=== PATIENT | male | born 1955 | race Caucasian/White ===

== ENCOUNTER 2017-08-06 10:59 | Emergency (ER) | payer BC, OTHER ==
[2017-08-06 11:18] VITALS: PULSE 75; RESP 20
--- NOTE | 2017-08-06 11:39 | ED ---
General Adult HPI - General Chief complaint: Back Pain/Injury Stated complaint: left lower abd pain Time Seen by Provider: 08/06/17 11:20 Source: patient, RN notes reviewed Mode of arrival: ambulatory Limitations: no limitations - History of Present Illness Initial comments: 62-year-old male presents to the emergency department with a chief complaint of left-sided back pain along with other complaints. He states he just had this pain to the left side of the back. Patient states sometimes it'll just flared up and then go away. Patient states sometimes lifting or moving will cause the pain to recur. He states that on Thursday he was having some increased urination be states that has since resolved. Patient states also 2 days ago when he was unloading a truck he did have some chest pain with history of stents in his heart. He states he took a nitro and the pain resolves. Patient states some nausea associated with that episode. Patient denies any chest pain over the last 2 days. Patient states that he also has an umbilical hernia he thought that maybe he should have IS NOT HAVING PAIN OR DISCOMFORT HE HAS NOT NOTICED ANY CHANGES IN SIZE TO THIS AREA EITHER. Patient denies any recent fever, chills , shortness of breath, abdominal pain, vomiting, numbness or tingling, dysuria or hematuria, constipation or diarrhea, headaches or visual changes, or any other current symptoms. - Related Data Home Medications Medication Instructions Recorded Confirmed Multivitamins, Thera [Multivitamin 1 tab PO DAILY 08/06/17 08/06/17 (formulary)] Allergies Allergy/AdvReac Type Severity Reaction Status Date / Time No Known Allergies Allergy Verified 08/06/17 11:35 Review of Systems ROS Statement: Those systems with pertinent positive or pertinent negative responses have been documented in the HPI. ROS Other: All systems not noted in ROS Statement are negative. Past Medical History Past Medical History: Coronary Artery Disease (CAD), Hyperlipidemia, Myocardial Infarction ([place]) History of Any Multi-Drug Resistant Organisms: None Reported Past Surgical History: Heart Catheterization With Stent Past Psychological History: No Psychological Hx Reported Smoking Status: Current every day smoker Past Alcohol Use History: None Reported Past Drug Use History: None Reported General Exam - General Exam Comments Initial Comments: General: The patient is awake and alert, in no distress, and does not appear acutely ill. Eye: Pupils are equal, round and reactive to light, extra-ocular movements are intact; there is normal conjunctiva bilaterally. No signs of icterus. Ears, nose, mouth and throat: There are moist mucous membranes and no oral lesions. Neck: The neck is supple, there is no tenderness. Cardiovascular: There is a regular rate and rhythm. No murmur, rub or gallop is appreciated. Respiratory: Lungs are clear to auscultation, respirations are non-labored, breath sounds are equal. No wheezes, stridor, rales, or rhonchi. Gastrointestinal: reducible Umbilical hernia, Soft, non-distended, non-tender abdomen without masses or organomegaly noted. There is no rebound or guarding present. No CVA tenderness. Bowel sounds are unremarkable. Back: There is no tenderness to palpation in the midline. There is no obvious deformity. No rashes noted. Musculoskeletal: Normal ROM, no tenderness, There is no pedal edema. There is no calf tenderness or swelling. Sensation intact. Pulses equal bilaterally 2+. Neurological: CN II-XII intact, There are no obvious motor or sensory deficits. Coordination appears grossly intact. Speech is normal. Skin: Skin is warm and dry and no rashes or lesions are noted. Psychiatric: Cooperative, appropriate mood & affect, normal judgment. Limitations: no limitations Course Vital Signs 08/06/17 11:15 Temperature 97.8 F Pulse Rate 75 Respiratory 20 Rate Blood Pressure 176/84 O2 Sat by Pulse 96 Oximetry EKG Findings - EKG Comments: EKG Findings:: normal sinus rhythm with occasional premature ventricular complexes 66 bpm, normal axis, no atopy, no S-T depressions or elevations, Medical Decision Making - Medical Decision Making 62-year-old male presents emergency Department with multiple complaints. At this time patient did present with chest pain that was 2 days ago. He does get this from time to time on history he states he normally takes a nitro and it makes the pain go away and this is typical for him. Patient also presented with an umbilical hernia that is reducible. Patient also complains of left flank pain. We thought to be muscle skull to the fact that it's worse with movement and worse with muscle skeletal type exam. At this time we discussed we 'll start her muscle asked for home. We did discuss follow-up return parameters all questions. Patient stated that he understood and he is in agreement with plan. He will be discharged. - Lab Data Result diagrams: 08/06/17 11:50 08/06/17 11:50 Lab Results 08/06/17 08/06/17 08/06/17 Range/Units 11:50 11:50 11:50 WBC 8.9 (3.8-10.6) k/uL RBC 5.12 (4.30-5.90) m/uL Hgb 15.3 (13.0-17.5) gm/dL Hct 46.8 (39.0-53.0) % MCV 91.3 (80.0-100.0) fL MCH 29.9 (25.0-35.0) pg MCHC 32.7 (31.0-37.0) g/dL RDW 13.3 (11.5-15.5) % Plt Count 256 (150-450) k/uL Neutrophils % 62 % Lymphocytes % 25 % Monocytes % 7 % Eosinophils % 3 % Basophils % 1 % Neutrophils # 5.6 (1.3-7.7) k/uL Lymphocytes # 2.2 (1.0-4.8) k/uL Monocytes # 0.6 (0-1.0) k/uL Eosinophils # 0.3 (0-0.7) k/uL Basophils # 0.1 (0-0.2) k/uL PT (9.0-12.0) sec INR (<1.2) APTT (22.0-30.0) sec Sodium 139 (137-145) mmol/L Potassium 4.4 (3.5-5.1) mmol/L Chloride 107 (98-107) mmol/L Carbon Dioxide 23 (22-30) mmol/L Anion Gap 9 mmol/L BUN 19 (9-20) mg/dL Creatinine 1.02 (0.66-1.25) mg/dL Est GFR (MDRD) Af Amer >60 (>60 ml/min/1.73 sqM) Est GFR (MDRD) Non-Af >60 (>60 ml/min/1.73 sqM) Glucose 96 (74-99) mg/dL Calcium 8.9 (8.4-10.2) mg/dL Magnesium 2.2 (1.6-2.3) mg/dL Total Bilirubin 0.6 (0.2-1.3) mg/dL AST 23 (17-59) U/L ALT 34 (21-72) U/L Alkaline Phosphatase 75 (38-126) U/L Total Creatine Kinase 237 H (55-170) U/L CK-MB (CK-2) 1.5 (0.0-2.4) ng/mL CK-MB (CK-2) Rel Index 0.6 Troponin I <0.012 (0.000-0.034) ng/mL Total Protein 7.4 (6.3-8.2) g/dL Albumin 4.1 (3.5-5.0) g/dL Amylase 35 (30-110) U/L Lipase 81 (23-300) U/L Urine Color Urine Appearance (Clear) Urine pH (5.0-8.0) Ur Specific [place] (1.001-1.035) Urine Protein (Negative) Urine Glucose (UA) (Negative) Urine Ketones (Negative) Urine Blood (Negative) Urine Nitrite (Negative) Urine Bilirubin (Negative) Urine Urobilinogen (<2.0) mg/dL Ur Leukocyte Esterase (Negative) 08/06/17 08/06/17 Range/Units 11:50 12:41 WBC (3.8-10.6) k/uL RBC (4.30-5.90) m/uL Hgb (13.0-17.5) gm/dL Hct (39.0-53.0) % MCV (80.0-100.0) fL MCH (25.0-35.0) pg MCHC (31.0-37.0) g/dL RDW (11.5-15.5) % Plt Count (150-450) k/uL Neutrophils % % Lymphocytes % % Monocytes % % Eosinophils % % Basophils % % Neutrophils # (1.3-7.7) k/uL Lymphocytes # (1.0-4.8) k/uL Monocytes # (0-1.0) k/uL Eosinophils # (0-0.7) k/uL Basophils # (0-0.2) k/uL PT 10.5 (9.0-12.0) sec INR 1.0 (<1.2) APTT 23.9 (22.0-30.0) sec Sodium (137-145) mmol/L Potassium (3.5-5.1) mmol/L Chloride (98-107) mmol/L Carbon Dioxide (22-30) mmol/L Anion Gap mmol/L BUN (9-20) mg/dL Creatinine (0.66-1.25) mg/dL Est GFR (MDRD) Af Amer (>60 ml/min/1.73 sqM) Est GFR (MDRD) Non-Af (>60 ml/min/1.73 sqM) Glucose (74-99) mg/dL Calcium (8.4-10.2) mg/dL Magnesium (1.6-2.3) mg/dL Total Bilirubin (0.2-1.3) mg/dL AST (17-59) U/L ALT (21-72) U/L Alkaline Phosphatase (38-126) U/L Total Creatine Kinase (55-170) U/L CK-MB (CK-2) (0.0-2.4) ng/mL CK-MB (CK-2) Rel Index Troponin I (0.000-0.034) ng/mL Total Protein (6.3-8.2) g/dL Albumin (3.5-5.0) g/dL Amylase (30-110) U/L Lipase (23-300) U/L Urine Color Yellow Urine Appearance Clear (Clear) Urine pH 5.0 (5.0-8.0) Ur Specific [place] 1.012 (1.001-1.035) Urine Protein Negative (Negative) Urine Glucose (UA) Negative (Negative) Urine Ketones Negative (Negative) Urine Blood Negative (Negative) Urine Nitrite Negative (Negative) Urine Bilirubin Negative (Negative) Urine Urobilinogen <2.0 (<2.0) mg/dL Ur Leukocyte Esterase Negative (Negative) Disposition Clinical Impression: Lumbar strain, Stable angina, Umbilical hernia Disposition: HOME SELF-CARE Condition: Stable Instructions: Acute Low Back Pain (ED), Lower Back Exercises (ED), Angina (ED) Additional Instructions: Please use medication as discussed. Please follow up with family doctor if symptoms have not improved over the next two days. Please return to the emergency room if your symptoms increase or worsen or for any other concerns. Referrals: Chrissy Salinas DO [REFERRING] - 1-2 days Time of Disposition: 13:08
[2017-08-06 12:00] LABS: Basophils # (A) 0.1 k/uL (0-0.2); Basophils % (A) 1 %; CH 30.4; CHCM 33.5; Eosinophils # (A) 0.3 k/uL (0-0.7); Eosinophils % (A) 3 %; HCT 46.8 % (39.0-53.0); HDW 2.64; HGB 15.3 gm/dL (13.0-17.5); Luc % (Auto) 2; Lymphocytes # (A) 2.2 k/uL (1.0-4.8); Lymphocytes % (A) 25 %; MCH 29.9 pg (25.0-35.0); MCHC 32.7 g/dL (31.0-37.0); MCV 91.3 fL (80.0-100.0); Mean Platelet Volume 6.3; Monocytes # (A) 0.6 k/uL (0-1.0); Monocytes % (A) 7 %; Neutrophils # (A) 5.6 k/uL (1.3-7.7); Neutrophils % (A) 62 %; RBC 5.12 m/uL (4.30-5.90); RDW 13.3 % (11.5-15.5); WBC 8.9 k/uL (3.8-10.6)
[2017-08-06 12:12] LABS: ALT 34 U/L (21-72); AST 23 U/L (17-59); Alkaline Phosphatase 75 U/L (38-126); Amylase 35 U/L (30-110); Anion Gap 9 mmol/L; Blood Urea Nitrogen 19 mg/dL (9-20); Calcium 8.9 mg/dL (8.4-10.2); Carbon Dioxide 23 mmol/L (22-30); Chloride 107 mmol/L (98-107); Glucose 96 mg/dL (74-99); Magnesium 2.2 mg/dL (1.6-2.3); Non-African American GFR(MDRD) >60 (>60 ml/min/1.73 sqM); Potassium 4.4 mmol/L (3.5-5.1); Sodium 139 mmol/L (137-145); Total Bilirubin 0.6 mg/dL (0.2-1.3); Total Protein 7.4 g/dL (6.3-8.2)
[2017-08-06 12:14] LABS: Partial Thromboplastin Time 23.9 sec (22.0-30.0); Prothrombin Time 10.5 sec (9.0-12.0)
--- NOTE | 2017-08-06 12:19 | XR ---
EXAMINATION TYPE: XR chest 2V DATE OF EXAM: 08/06/2017 COMPARISON: 12/23/2011 HISTORY: 62-year-old male with chest pain TECHNIQUE: Frontal and lateral views FINDINGS: Heart is normal size. Aorta and pulmonary vasculature within normal limits. Mild interstitial promine nce similar to prior. There is hyperinflation with flattening of the hemidiaphragms. No consolidation or pleural effusion. IMPRESSION: COPD. No acute process seen.
--- NOTE | 2017-08-06 12:23 | XR ---
EXAMINATION TYPE: XR lumbar spine 2 or 3V DATE OF EXAM: 08/06/2017 COMPARISON: None HISTORY: 62-year-old male with pain TECHNIQUE: 3 views FINDINGS: There is leftward truncal shift. Facet arthropathy mid to lower lumbar spine with multilevel mild end plate spondylosis. Vertebral body heights are reserved. Grade 1 retrolisthesis at L1-L2. IMPRESSION: 1. Mild multilevel degenerative disc disease and endplate spondylosis. 2. Facet arthropathy mid to lower lumbar spine. 3. Grade 1 retrolisthesis at L1-L2. No vertebral compression collapse. 4. Leftward truncal shift could be positional or due to muscle spasm.
[2017-08-06 12:32] LABS: Creatine Kinase 237 U/L (55-170)
[2017-08-06 12:44] LABS: Creatine Kinase MB 1.5 ng/mL (0.0-2.4); Troponin I <0.012 ng/mL (0.000-0.034)
[2017-08-06 12:57] LABS: Appearance,Urine Clear (Clear); Bilirubin,Urine Negative (Negative); Glucose,Urine (UA) Negative (Negative); Ketones,Urine Negative (Negative); Leukocyte Esterase,Urine Negative (Negative); Nitrite,Urine Negative (Negative); Protein,Urine Negative (Negative); Specific Gravity,Urine 1.012 (1.001-1.035); UA Billing (MACRO vs. MICRO) CHEM; Urobilinogen,Urine <2.0 mg/dL (<2.0)
[2017-08-06] MEDS ORDERED: KETOROLAC 30 MG/ML 1 ML VIAL IVP STA (12:58)
[2017-08-06] MEDS ORDERED: ORPHENADRINE 30 MG/ML 2 ML VIAL IVP STA (12:58)
[2017-08-06 13:18] VITALS: BP 134/78; TEMP 97
== END 2017-08-06 13:20 | disposition home or self-care (01) ==
LOC: EC 10:59
DX: S39.012A Strain of muscle, fascia and tendon of lower back, initial encounter (principal); K42.9 Umbilical hernia without obstruction or gangrene; I20.8 Other forms of angina pectoris; F17.200 Nicotine dependence, unspecified, uncomplicated; E78.5 Hyperlipidemia, unspecified; I25.2 Old myocardial infarction; Z79.899 Other long term (current) drug therapy; X50.0XXA Overexertion from strenuous movement or load, initial encounter
CPT/HCPCS: 36415; 71020; 72100; 80053; 81003; 82150; 82550; 82553; 83690; 83735; 84484; 85025; 85610; 85730; 93005; 99284

== ENCOUNTER 2018-03-06 11:46 | Emergency (ER) | payer OTHER ==
[2018-03-06 12:10] VITALS: BP 186/74; PULSE 76; RESP 18; TEMP 98.1
--- NOTE | 2018-03-06 12:20 | ED ---
Lower Extremity Injury HPI - General Chief Complaint: Extremity Injury, Lower Stated Complaint: right leg pain Time Seen by Provider: 03/06/18 12:11 Source: patient, RN notes reviewed, old records reviewed Mode of arrival: ambulatory Limitations: no limitations - History of Present Illness Initial Comments: this Patient is a 63-year-old male chief complaint of right lower extremity and calf pain for the past 3 weeks. Patient reports that when he goes for long periods time the pain gets significantly worse. He does work [employer] business. He does try to keep active. Patient reports that he occasionally has pain within the bone, but it seems to be more within the muscles in the back of the calf. Patient states that he has full range of motion. Occasionally reports the pain radiating towards his great toe. He states that he is able to ambulate. Denies any peripheral paresthesias. Patient denies any recent fever, chills, shortness of breath, chest pain, back pain, abdominal pain, nausea vomiting, numbness or tingling, dysuria or hematuria, constipation or diarrhea, headaches or visual changes, or any other current symptoms - Related Data Previous Rx's Medication Instructions Recorded Cyclobenzaprine [Flexeril] 10 mg PO TID #10 tab 03/06/18 Ibuprofen [Motrin] 800 mg PO TID #20 tab 03/06/18 Allergies Allergy/AdvReac Type Severity Reaction Status Date / Time No Known Allergies Allergy Verified 03/06/18 12:10 Review of Systems ROS Statement: Those systems with pertinent positive or pertinent negative responses have been documented in the HPI. ROS Other: All systems not noted in ROS Statement are negative. Past Medical History Past Medical History: Coronary Artery Disease (CAD), Hyperlipidemia, Myocardial Infarction ([place]) History of Any Multi-Drug Resistant Organisms: None Reported Past Surgical History: Heart Catheterization With Stent Past Psychological History: No Psychological Hx Reported Smoking Status: Current every day smoker Past Alcohol Use History: None Reported Past Drug Use History: None Reported General Exam - General Exam Comments Initial Comments: well-appearing 63-year-old male. Patient is hypertensive 180/90. Informed of these results. Discussed he will follow up with primary care provider regards to this. He appears in no acute distress. Denies anxiety. Limitations: no limitations General appearance: alert, in no apparent distress Head exam: Present: atraumatic, normocephalic, normal inspection Eye exam: Present: normal appearance, PERRL, EOMI. Absent: scleral icterus, conjunctival injection, periorbital swelling ENT exam: Present: normal exam, mucous membranes moist Neck exam: Present: normal inspection. Absent: tenderness, meningismus, lymphadenopathy Respiratory exam: Present: normal lung sounds bilaterally. Absent: respiratory distress, wheezes, rales, rhonchi, stridor Cardiovascular Exam: Present: regular rate GI/Abdominal exam: Present: soft, normal bowel sounds. Absent: distended, tenderness, guarding, rebound, rigid Extremities exam: Present: normal inspection, full ROM, normal capillary refill. Absent: tenderness, pedal edema, joint swelling, calf tenderness Right Knee exam: Present: normal inspection, full ROM Lower Leg exam: Present: normal inspection, full ROM, tenderness (Patient has tenderness over the posterior calf. No significant swelling). Absent: swelling , abrasion Ankle exam: Present: normal inspection, full ROM Foot/Toe exam: Present: normal inspection, full ROM Neurovascular tendon exam: Present: no vascular compromise Back exam: Present: normal inspection Neurological exam: Present: alert, oriented X3, CN II-XII intact Psychiatric exam: Present: normal affect, normal mood Skin exam: Present: warm, dry, intact, normal color. Absent: rash Course Vital Signs 03/06/18 12:05 Temperature 98.1 F Pulse Rate 76 Respiratory 18 Rate Blood Pressure 186/74 O2 Sat by Pulse 95 Oximetry Medical Decision Making - Medical Decision Making this Patient is a 63-year-old male presents emergency Department chief complaint of right calf pain for the past 2 weeks. Worse with ablation. Ultrasound and x-ray obtained.ultrasound was negative for DVT. X-ray of the tib -fib shows no acute abnormalities. patient's informed of these results. Discussed likely a significant muscle strain. Discussed that the Patient anti- inflammatory medicine and he can Pj wrap the back of the leg. Discussed falling up with orthopedic or primary care doctor. Questions answered return parameters were discussed. - Radiology Data Radiology results: report reviewed tib-fib x-ray was reviewed and negative for any acute process. Ultrasound of the right leg shows no evidence of DVT. Disposition Clinical Impression: Right calf pain, Hypertension Disposition: HOME SELF-CARE Condition: Good Instructions: Muscle Cramp (ED) Additional Instructions: Patient was up with primary care provider. Return to emergency department if any alarming signs or symptoms occur. Prescriptions: Cyclobenzaprine [Flexeril] 10 mg PO TID #10 tab Ibuprofen [Motrin] 800 mg PO TID #20 tab Is patient prescribed a controlled substance at d/c from ED?: No When asked, does pt state using other controlled substances?: No If prescribed controlled substance>3 days was MAPS reviewed?: No If opioid is for acute pain is fill amount 7 days or less?: No If Rx opioid, was Start Talking consent form obtained?: No Referrals: None,Stated [Primary Care Provider] - 1-2 days Leeanna Guevara MD [REFERRING] - 1-2 days Time of Disposition: 14:01
--- NOTE | 2018-03-06 13:46 | US ---
EXAMINATION TYPE: US venous doppler duplex LE RT DATE OF EXAM: 03/06/2018 1:36 PM COMPARISON: NONE CLINICAL HISTORY: Pain. SIDE PERFORMED: Right TECHNIQUE: The lower extremity deep venous system is examined utilizing real time linear array sonog royal with graded compression, doppler sonography and color-flow sonography. VESSELS IMAGED: External Iliac Vein (EIV) Common Femoral Vein Deep Femoral Vein Greater Saphenous Vein * Femoral Vein Popliteal Vein Small Saphenous Vein * Proximal Calf Veins (* superficial vessels) Grayscale, color doppler, spectral doppler imaging performed of the deep veins of the right lower ext remity. There is normal flow, compressibility, vascular waveforms. Right Leg: Negative for DVT IMPRESSION: Sonographic evidence of acute deep venous thrombosis within the right lower extremity.
--- NOTE | 2018-03-06 13:53 | XR ---
EXAMINATION TYPE: XR tibia fibula RT DATE OF EXAM: 03/06/2018 COMPARISON: NONE HISTORY: Pain TECHNIQUE: Two views are submitted. FINDINGS: The osseous structures are intact. The joint spaces are preserved. IMPRESSION: 1. No acute osseous abnormality.
== END 2018-03-06 14:30 | disposition home or self-care (01) ==
LOC: EC 11:46
DX: M79.661 Pain in right lower leg (principal); I10 Essential (primary) hypertension; I25.2 Old myocardial infarction; F17.200 Nicotine dependence, unspecified, uncomplicated; Z95.5 Presence of coronary angioplasty implant and graft
CPT/HCPCS: 99284

== ENCOUNTER 2018-09-30 09:56 | Inpatient (IN) | payer OTHER ==
[2018-09-30] MEDS ORDERED: NITROGLYCERIN OINT 1 INCH/GM PACKET TOPICAL STA (10:10)
[2018-09-30] MEDS ORDERED: ASPIRIN 81 MG PO STA (10:10)
[2018-09-30] MEDS ORDERED: NITROGLYCERIN SL TABS 0.4 MG TAB SUBLINGUAL STA (10:10)
--- NOTE | 2018-09-30 10:17 | ED ---
General Adult HPI - General Chief complaint: Chest Pain Stated complaint: Chest pain Time Seen by Provider: 09/30/18 10:00 Source: patient, RN notes reviewed Mode of arrival: ambulatory - History of Present Illness Initial comments: This is a 63-year-old male who presents emergency Department complaining of intermittent chest pain over the last 2 weeks. Patient states he didn't want to come in because he wanted to wait for the holidays were over. Patient states a friend gave him a bottle of nitroglycerin he took about all the pills. Patient states every time he took a pill the chest pain dissipated. Patient denies any shortness of breath with the pain. Patient denies any nausea or diaphoresis with the pain. Patient states the pain does radiate to his left arm when it occurs. Patient denies any recent fever chills or cough. Patient states he smokes and does have a positive family history of heart disease per patient denies any abdominal pain patient denies nausea vomiting diarrhea. Patient denies any lightheadedness dizziness or near-syncopal episode. Patient states currently is not having any calf pain but he notices that when he walks often he is getting calf pain bilaterally. - Related Data Home Medications Medication Instructions Recorded Confirmed No Known Home Medications 09/30/18 09/30/18 Allergies Allergy/AdvReac Type Severity Reaction Status Date / Time No Known Allergies Allergy Verified 09/30/18 11:06 Review of Systems ROS Statement: Those systems with pertinent positive or pertinent negative responses have been documented in the HPI. ROS Other: All systems not noted in ROS Statement are negative. Past Medical History Past Medical History: Coronary Artery Disease (CAD), Hyperlipidemia, Myocardial Infarction ([place]) History of Any Multi-Drug Resistant Organisms: None Reported Past Surgical History: Heart Catheterization With Stent Past Psychological History: No Psychological Hx Reported Smoking Status: Current every day smoker Past Alcohol Use History: None Reported Past Drug Use History: None Reported General Exam - General Exam Comments Initial Comments: GENERAL: Patient is well-developed and well-nourished. Patient is nontoxic and well- hydrated and is in mild distress. ENT: Neck is soft and supple. No significant lymphadenopathy is noted. Oropharynx is clear. Moist mucous membranes. Neck has full range of motion without eliciting any pain. EYES: The sclera were anicteric and conjunctiva were pink and moist. Extraocular movements were intact and pupils were equal round and reactive to light. Eyelids were unremarkable. PULMONARY: Unlabored respirations. Good breath sounds bilaterally. No audible rales rhonchi or wheezing was noted. CARDIOVASCULAR: There is a regular rate and rhythm without any murmurs gallops or rubs. ABDOMEN: Soft and nontender with normal bowel sounds. No palpable organomegaly was noted. There is no palpable pulsatile mass. SKIN: Skin is clear with no lesions or rashes and otherwise unremarkable. NEUROLOGIC: Patient is alert and oriented x3. Cranial nerves II through XII are grossly intact. Motor and sensory are also intact. Normal speech, volume and content. Symmetrical smile. MUSCULOSKELETAL: Normal extremities with adequate strength and full range of motion. No lower extremity swelling or edema. No calf tenderness. LYMPHATICS: No significant lymphadenopathy is noted PSYCHIATRIC: Normal psychiatric evaluation. Course Vital Signs 09/30/18 09/30/18 09/30/18 09:58 10:30 11:03 Temperature 97.9 F Pulse Rate 96 79 80 Respiratory 25 H 20 20 Rate Blood Pressure 169/99 96/75 122/79 O2 Sat by Pulse 95 96 92 L Oximetry Medical Decision Making - Medical Decision Making EKG shows sinus rhythm with occasional PVC at 87 bpm ND interval is 136 QRS is 110 QT interval 360 QTC is 442. Patient's EKG shows some Q waves in inferior leads as well as flipped T waves in leads 3 and aVF. When compared to an old EKG patient had Q waves in the past however the flipped T waves appear to be new. There is no ST segment elevation noted. Patient does have a little bit of ST segment depression in leads V4 through V6. After patient was in the emergency department over an hour and half he told nursing that he did have stents placed in his heart even though he told me he had no heart history. I started the patient heparin because of his unstable angina. I spoke with Dr. Martinez I admitted the patient I wrote admitting orders I consult cardiology. I continue aspirin heparin Nitropaste on the floor. - Lab Data Result diagrams: 09/30/18 10:18 09/30/18 10:18 Lab Results 09/30/18 09/30/18 09/30/18 Range/Units 10:18 10:18 10:18 WBC 10.1 (3.8-10.6) k/uL RBC 5.57 (4.30-5.90) m/uL Hgb 15.8 (13.0-17.5) gm/dL Hct 49.7 (39.0-53.0) % MCV 89.2 (80.0-100.0) fL MCH 28.4 (25.0-35.0) pg MCHC 31.8 (31.0-37.0) g/dL RDW 14.0 (11.5-15.5) % Plt Count 312 (150-450) k/uL Neutrophils % 70 % Lymphocytes % 19 % Monocytes % 6 % Eosinophils % 3 % Basophils % 1 % Neutrophils # 7.1 (1.3-7.7) k/uL Lymphocytes # 2.0 (1.0-4.8) k/uL Monocytes # 0.6 (0-1.0) k/uL Eosinophils # 0.3 (0-0.7) k/uL Basophils # 0.1 (0-0.2) k/uL PT (9.0-12.0) sec INR (<1.2) APTT (22.0-30.0) sec Sodium 138 (137-145) mmol/L Potassium 4.8 (3.5-5.1) mmol/L Chloride 107 (98-107) mmol/L Carbon Dioxide 22 (22-30) mmol/L Anion Gap 9 mmol/L BUN 21 H (9-20) mg/dL Creatinine 1.09 (0.66-1.25) mg/dL Est GFR (CKD-EPI)AfAm 84 (>60 ml/min/1.73 sqM) Est GFR (CKD-EPI)NonAf 73 (>60 ml/min/1.73 sqM) Glucose 107 H (74-99) mg/dL Calcium 9.4 (8.4-10.2) mg/dL Magnesium 2.2 (1.6-2.3) mg/dL Total Bilirubin 0.8 (0.2-1.3) mg/dL AST 20 (17-59) U/L ALT 25 (21-72) U/L Alkaline Phosphatase 73 (38-126) U/L Total Creatine Kinase 92 (55-170) U/L CK-MB (CK-2) 0.6 (0.0-2.4) ng/mL CK-MB (CK-2) Rel Index 0.7 Troponin I 0.036 H* (0.000-0.034) ng/mL Total Protein 7.7 (6.3-8.2) g/dL Albumin 4.4 (3.5-5.0) g/dL 09/30/18 Range/Units 10:18 WBC (3.8-10.6) k/uL RBC (4.30-5.90) m/uL Hgb (13.0-17.5) gm/dL Hct (39.0-53.0) % MCV (80.0-100.0) fL MCH (25.0-35.0) pg MCHC (31.0-37.0) g/dL RDW (11.5-15.5) % Plt Count (150-450) k/uL Neutrophils % % Lymphocytes % % Monocytes % % Eosinophils % % Basophils % % Neutrophils # (1.3-7.7) k/uL Lymphocytes # (1.0-4.8) k/uL Monocytes # (0-1.0) k/uL Eosinophils # (0-0.7) k/uL Basophils # (0-0.2) k/uL PT 9.9 (9.0-12.0) sec INR 0.9 (<1.2) APTT 24.3 (22.0-30.0) sec Sodium (137-145) mmol/L Potassium (3.5-5.1) mmol/L Chloride (98-107) mmol/L Carbon Dioxide (22-30) mmol/L Anion Gap mmol/L BUN (9-20) mg/dL Creatinine (0.66-1.25) mg/dL Est GFR (CKD-EPI)AfAm (>60 ml/min/1.73 sqM) Est GFR (CKD-EPI)NonAf (>60 ml/min/1.73 sqM) Glucose (74-99) mg/dL Calcium (8.4-10.2) mg/dL Magnesium (1.6-2.3) mg/dL Total Bilirubin (0.2-1.3) mg/dL AST (17-59) U/L ALT (21-72) U/L Alkaline Phosphatase (38-126) U/L Total Creatine Kinase (55-170) U/L CK-MB (CK-2) (0.0-2.4) ng/mL CK-MB (CK-2) Rel Index Troponin I (0.000-0.034) ng/mL Total Protein (6.3-8.2) g/dL Albumin (3.5-5.0) g/dL Critical Care Time Critical Care Time: Yes Total Critical Care Time: 35 Disposition Clinical Impression: Unstable angina pectoris Disposition: ADMITTED IP TO THIS HOSP Referrals: None,Stated [Primary Care Provider] - 1-2 days Time of Disposition: 11:08
[2018-09-30 10:40] LABS: INR 0.9 (<1.2); Partial Thromboplastin Time 24.3 sec (22.0-30.0); Prothrombin Time 9.9 sec (9.0-12.0)
[2018-09-30 10:41] LABS: Basophils # (A) 0.1 k/uL (0-0.2); Basophils % (A) 1 %; Eosinophils # (A) 0.3 k/uL (0-0.7); Eosinophils % (A) 3 %; HCT 49.7 % (39.0-53.0); HGB 15.8 gm/dL (13.0-17.5); Lymphocytes % (A) 19 %; MCH 28.4 pg (25.0-35.0); MCHC 31.8 g/dL (31.0-37.0); MCV 89.2 fL (80.0-100.0); Mean Platelet Volume 6.3; Monocytes # (A) 0.6 k/uL (0-1.0); Monocytes % (A) 6 %; Neutrophils # (A) 7.1 k/uL (1.3-7.7); Neutrophils % (A) 70 %; Platelet Count 312 k/uL (150-450); RBC 5.57 m/uL (4.30-5.90); WBC 10.1 k/uL (3.8-10.6)
--- NOTE | 2018-09-30 10:44 | XR ---
EXAMINATION TYPE: XR chest 2V DATE OF EXAM: 09/30/2018 COMPARISON: 08/06/2017 TECHNIQUE: PA and lateral views submitted. HISTORY: Chest pain FINDINGS: The lungs are clear and there is no pneumothorax, pleural effusion, or focal pneumonia. Hyperinflat ion suggests COPD and there is biapical pleural thickening. Hypertrophic and degenerative changes of the spine. IMPRESSION: 1. Correlate for COPD.
[2018-09-30 10:53] LABS: Albumin 4.4 g/dL (3.5-5.0); Calcium 9.4 mg/dL (8.4-10.2); Magnesium 2.2 mg/dL (1.6-2.3); Potassium 4.8 mmol/L (3.5-5.1); Total Bilirubin 0.8 mg/dL (0.2-1.3); Total Protein 7.7 g/dL (6.3-8.2)
[2018-09-30 11:06] LABS: Creatine Kinase MB 0.6 ng/mL (0.0-2.4)
[2018-09-30] MEDS ORDERED: HEPARIN SODIUM,PORCINE 5,000 UNIT/ML 1 ML VIAL IV ONE (11:06)
[2018-09-30 11:10] LABS: Troponin I 0.036 ng/mL (0.000-0.034)
[2018-09-30] MEDS ORDERED: NITROGLYCERIN SL TABS 0.4 MG TAB SUBLINGUAL PRN (11:12)
[2018-09-30] MEDS: HEPARIN SOD,PORK IN 0.45% NACL 25,000 UNIT in 0.45% NACL 1 250ML.BAG IV SCH (12:00)
--- NOTE | 2018-09-30 13:27 | P.HPIM ---
History of Present Illness Chief Complaint: Chest pain This is a 63-year-old male who is presenting in the emergency department due to chest pain. Past medical history significant for coronary artery disease with multiple percutaneous interventions in the past. Currently patient does not take much of his usual recommended medications and due to insurance issues does not have regular follow-ups with cardiology. Patient states that for about last 2-3 weeks he's been having intermittent retrosternal chest pressure like discomfort mild to moderate severity provoked initially by exertion and stress and exposure to cold weather lasting few minutes and then subsiding on its own. Over the last 1 week he noticed episodes are coming 3-4 times a day sometimes even at rest. He also borrowed some nitroglycerin from his cousins and notices that episodes of chest pain would resolve promptly with nitroglycerin. He denies any shortness of breath, nausea, vomiting, diaphoresis, orthopnea or leg swelling due to worsening episodes of this pain increases in severity he decided to come to emergency Department. Emergency department his EKG showed normal sinus rhythm some Q waves in inferior leads and no any acute ST segment changes. Chest x-ray was stable without acute findings and first troponin was elevated at 0.036. Patient was given aspirin and started on heparin infusion. Patient states that he had first heart attack in 1996 at which time he was treated by from cardiology and had stents placed. He was doing very well after that attend about 6 years later he had another heart attack again treated with stents insertions. About 6 years ago with the last time when he had a heart attack and that time was also treated with percutaneous intervention. 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 Otherwise he does report some cramping and stiffening in his coughs mostly in the left side with ambulation but not severe to interrupt his usual activities. Review of Systems Constitutional: Patient reports no fever, no chills, no weight changes, no change in appetite Eyes: Patient reports no double vision, no visual changes ENT: Patient reports no rhinorrhea, no post nasal drip, no sore throat Cardiovascular: As per HPI Respiratory: Patient reports no dyspnea, no cough, no wheeze Gastrointestinal: Patient reports no nausea, no vomiting, no constipation, no diarrhea Genitourinary: Patient reports no dysuria, no urinary frequency, no hematuria. Musculoskeletal: Patient reports no unusual joint pain, no joint swelling or weakness. Patient reports no muscular pain. Psychiatric: Patient reports no changes in mood, no sleeping problems. Patient reports no changes in memory. Endocrine: Patient reports no thirst, no polyuria, no cold intolerance, no heat intolerance. Neurological: Patient reports no unusual paresthesias, no seizures, no paresis , no paralysis, no facila droop, no headache. Heme/Lymphatic: Patient reports no easy bruising, no bleeding tendency, no lymphadenopathy. Allergic/ Immunologic: Patient reports no recent allergic reactions or immunologic history. Skin: Patient reports no rashes or unusual lesions. Past Medical History Past Medical History: Coronary Artery Disease (CAD), Hyperlipidemia, Myocardial Infarction ([place]) History of Any Multi-Drug Resistant Organisms: None Reported Past Surgical History: Heart Catheterization With Stent Past Psychological History: No Psychological Hx Reported Smoking Status: Current every day smoker Past Alcohol Use History: None Reported Past Drug Use History: None Reported - Past Family History Father Family Medical History: Coronary Artery Disease (CAD) Additional Family Medical History / Comment(s): father is . hx cabg Mother Family Medical History: Cancer Additional Family Medical History / Comment(s): . hx leukemia Medications and Allergies Home Medications Medication Instructions Recorded Confirmed Type No Known Home Medications 09/30/18 09/30/18 History Allergies Allergy/AdvReac Type Severity Reaction Status Date / Time No Known Allergies Allergy Verified 09/30/18 11:06 Physical Exam Vitals: Vital Signs Temp Pulse Resp BP Pulse Ox 09/30/18 11:56 76 18 103/69 96 09/30/18 11:03 80 20 122/79 92 L 09/30/18 10:30 79 20 96/75 96 09/30/18 09:58 97.9 F 96 25 H 169/99 95 Intake and Output 09/29/18 09/30/18 09/30/18 22:59 06:59 14:59 Other: Weight 121.653 kg Vital Signs: I have reviewed the vital signs. GENERAL: no apparent distress, cooperative Eyes: PERRL, extraoculry movements intact, clear conjunctiva Head: : Atraumatic external nose and ears, oropharyngeal mucosa is moist without lesions or exudates Neck: Symmetric, trachea midline, No thyromegaly, no masses or neck vain pulsation, no neck rigidity CVS: +S1/S2, No murmurs or gallops. Dorsalis pedis pulses are weak but they were identified using Doppler emergency department. His both feet are very well perfused and warm with brisk capillary refill and no skin change RESP: Unlabored respiratory effort. Clear to auscultation bilaterally. Abdomen: He does have midline infraumbilical ventral hernia that soft and without any particular continent but palpable . Bowel sounds present in all 4 quadrants, Soft to palpation, Nontender/Nondistended, No hepatosplenomegaly, no CVA tnderness Musculoskeletal: Extremities w/o deformity, No cyanosis or clubbing, no joint swelling Skin: Warm, Dry. 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 Non-STEMI Trend troponin Cardiology consultation Continue heparin and antiplatelets Beta blockers Statin Nitroglycerin when necessary chest pains 2. Hyperlipidemia Statin 3. Tobacco addiction Smoking cessation 4. Consult community mental health social worker for insurance Patient is a full code expected length of stay 2 or more midnights
[2018-09-30 17:57] LABS: Creatine Kinase MB 0.7 ng/mL (0.0-2.4)
[2018-09-30 18:15] LABS: Troponin I 0.038 ng/mL (0.000-0.034)
[2018-09-30] MEDS: ATORVASTATIN 40 MG TAB PO SCH (19:49)
[2018-09-30 22:47] LABS: Creatine Kinase MB 0.6 ng/mL (0.0-2.4)
[2018-09-30 22:53] LABS: Troponin I 0.047 ng/mL (0.000-0.034)
[2018-10-01 04:54] LABS: Hemoglobin A1C 6.3 % (4.0-6.0)
[2018-10-01 05:15] LABS: ALT 26 U/L (21-72); AST 19 U/L (17-59); Albumin 3.6 g/dL (3.5-5.0); Alkaline Phosphatase 71 U/L (38-126); Anion Gap 4 mmol/L; Blood Urea Nitrogen 20 mg/dL (9-20); Calcium 8.8 mg/dL (8.4-10.2); Carbon Dioxide 25 mmol/L (22-30); Chloride 110 mmol/L (98-107); Cholesterol 211 mg/dL (<200); Glucose 110 mg/dL (74-99); HDL Cholesterol 31 mg/dL (40-60); LDL Cholesterol,Calculated 143 mg/dL (0-99); Potassium 4.4 mmol/L (3.5-5.1); Sodium 139 mmol/L (137-145); Total Bilirubin 0.7 mg/dL (0.2-1.3); Total Protein 6.6 g/dL (6.3-8.2); Triglycerides 186 mg/dL (<150)
[2018-10-01] MEDS ORDERED: HEPARIN SODIUM,PORCINE 5,000 UNIT/ML 1 ML VIAL IV PRN (05:41)
[2018-10-01] MEDS: METOPROLOL TARTRATE 12.5 MG TAB PO SCH ×2 (09:25→19:58)
[2018-10-01] MEDS: ASPIRIN 325 MG TAB PO SCH (09:26)
--- NOTE | 2018-10-01 11:11 | ECHOF ---
Referral Reason:Chest pain non-STEMI MEASUREMENTS -------- HEIGHT: 172.7 cm WEIGHT: 121.6 kg BP: 103/69 RVIDd: 3.3 cm (< 3.3) IVSd: 1.0 cm (0.6 - 1.1) LVIDd: 4.5 cm (3.9 - 5.3) LVPWd: 1.4 cm (0.6 - 1.1) IVSs: 1.0 cm LVIDs: 3.5 cm LVPWs: 1.4 cm LAESV Index (A-L): 16.13 ml/m Ao Diam: 3.1 cm (2.0 - 3.7) AV Cusp: 2.2 cm (1.5 - 2.6) LA Diam: 2.6 cm (2.7 - 3.8) MV EXCURSION: 13.601 mm (> 18.000) MV EF SLOPE: 59 mm/s (70 - 150) EPSS: 1.6 cm MV E Dejuan: 0.57 m/s MV DecT: 238 ms MV A Dejuan: 0.75 m/s MV E/A Ratio: 0.76 RAP: 5.00 mmHg RVSP: 10.63 mmHg FINDINGS -------- Sinus rhythm. This was a technically difficult study with suboptimal views. The left ventricular size is normal. There is mild concentric left ventricular hypertrophy. Overa ll left ventricular systolic function is mild-moderately impaired with, an EF between 40 - 45 %. Ba roseline inferior LV wall motion is hypokinetic. Basal inferoseptal LV wall motion is hypokinetic. M id inferior LV wall motion is hypokinetic. Mid inferoseptal LV wall motion is hypokinetic. The right ventricle is mildly enlarged. Normal LA size by volume 22+/-6 ml/m2. The right atrium is normal in size. The aortic valve was not well visualized. There is trace mitral regurgitation. Trace tricuspid regurgitation present. The right ventricular systolic pressure, as measured by Dopp ler, is 10.63mmHg. Pulmonic valve appears structurally normal. The aortic root size is normal. IVC Not well visulized. The pericardium is normal. 5.0mg of Lumason was utilized for enhancement of images CONCLUSIONS -------- 1. Sinus rhythm. 2. This was a technically difficult study with suboptimal views. 3. The left ventricular size is normal. 4. There is mild concentric left ventricular hypertrophy. 5. Basal inferior LV wall motion is hypokinetic. 6. Basal inferoseptal LV wall motion is hypokinetic. 7. Mid inferior LV wall motion is hypokinetic. 8. Mid inferoseptal LV wall motion is hypokinetic. 9. The right ventricle is mildly enlarged. 10. Normal LA size by volume 22+/-6 ml/m2. 11. The right atrium is normal in size. 12. 5.0mg of Lumason was utilized for enhancement of images 13. The aortic valve was not well visualized. 14. There is trace mitral regurgitation. 15. Trace tricuspid regurgitation present. 16. The right ventricular systolic pressure, as measured by Doppler, is 10.63mmHg. 17. Pulmonic valve appears structurally normal. 18. The aortic root size is normal. 19. IVC Not well visulized. 20. The pericardium is normal. PLATE SLITTER AND INSPECTOR: Nirali Aguilar RDCS
[2018-10-01] MEDS: HEPARIN SOD,PORK IN 0.45% NACL 25,000 UNIT in 0.45% NACL 1 250ML.BAG IV SCH (11:20)
--- NOTE | 2018-10-01 11:37 | P.CRDCN ---
History of Present Illness Consult date: 10/01/18 Requesting physician: Sonam Martinez Consult reason: non-Q-wave HI Chief complaint: Chest pain History of present illness: This is a 63-year-old gentleman with known history of coronary artery disease and prior stent placements in the past. The most recent stent was placed 9 years ago. Patient states he has never had a myocardial infarction in the past, he does have hypertension, hyperlipidemia, and he does smoke cigarettes. Patient has not followed with a rail detector car operator because he had no insurance, he also states that he stopped taking all of his medications for the same reason. The past 9 years he has been relatively symptom-free. He presents to the hospital on this occasion with symptoms of midsternal chest pressure and heaviness with radiation down his left arm. He feels that the symptoms were precipitated by walking out into cold weather. He has been having symptoms off and on the past 3 weeks. White blood cell count 10.1, hemoglobin 15.8, platelet count 312. Sodium 139, potassium 4.4, BUN 20, creatinine 0.9. Hemoglobin A1c 6.3. Troponins 0.036, 0.038, 0.047. Cholesterol is 211, LDL 143, HDL 31, triglycerides 186. He was initiated on IV heparin in the emergency room, he is currently chest pain-free. His EKG on arrival here showed a normal sinus rhythm with ST-T wave changes noted in the inferior leads. Chest x-ray showed COPD. Patient did have an echocardiogram with Doppler study performed which revealed an ejection fraction of 40-45%. Basal and mid inferior septal hypokinesia noted. Past Medical History Past Medical History: Coronary Artery Disease (CAD), Myocardial Infarction ([place]) Additional Past Medical History / Comment(s): "in past may have taken bp and cholesterol meds",past kidney stones, umb hernia Last Myocardial Infarction Date:: 1996 History of Any Multi-Drug Resistant Organisms: None Reported Past Surgical History: Heart Catheterization With Stent Additional Past Surgical History / Comment(s): "3 heart caths, 4 stents". Past Anesthesia/Blood Transfusion Reactions: No Reported Reaction Additional Past Anesthesia/Blood Transfusion Reaction / Comment(s): has never had any blood transfusions Date of Last Stent Placement:: unk Smoking Status: Current every day smoker - Past Family History Father Family Medical History: Coronary Artery Disease (CAD) Additional Family Medical History / Comment(s): father is . hx cabg Mother Family Medical History: Cancer Additional Family Medical History / Comment(s): . hx leukemia Medications and Allergies Home Medications Medication Instructions Recorded Confirmed Type No Known Home Medications 09/30/18 09/30/18 History Allergies Allergy/AdvReac Type Severity Reaction Status Date / Time No Known Allergies Allergy Verified 09/30/18 11:06 Physical Exam Vitals: Vital Signs Temp Pulse Pulse Resp BP BP Pulse Ox 10/01/18 11:23 55 L 10/01/18 11:18 55 L 16 140/76 94 L 10/01/18 08:00 97.2 F L 69 16 132/86 93 L 10/01/18 04:00 97.5 F L 65 18 138/72 94 L 09/30/18 23:38 98.0 F 68 17 130/77 95 09/30/18 20:00 97.8 F 71 18 135/92 94 L 09/30/18 17:30 57 L 12 126/68 93 L 09/30/18 17:00 60 20 137/67 93 L 09/30/18 16:30 65 17 138/69 09/30/18 16:00 59 L 9 L 130/69 95 09/30/18 15:30 54 L 15 128/68 92 L 09/30/18 15:00 58 L 20 124/74 09/30/18 14:30 58 L 21 115/88 94 L 09/30/18 14:07 71 16 115/88 98 09/30/18 14:00 69 19 129/88 95 09/30/18 13:30 73 20 130/90 09/30/18 13:00 67 23 132/88 92 L 09/30/18 12:30 73 16 103/69 93 L 09/30/18 12:00 77 17 103/69 96 09/30/18 11:56 76 18 103/69 96 09/30/18 11:30 74 15 122/79 95 Intake and Output 09/30/18 10/01/18 10/01/18 22:59 06:59 14:59 Intake Total 100.531 263.058 46.411 Balance 100.531 263.058 46.411 Intake: IV 160 .9 160 Intake, IV Titration 100.531 103.058 46.411 Amount Heparin Sod,Pork in 0.45% 100.531 103.058 46.411 NaCl 25,000 unit In 0.45 % NaCl 1 250ml.bag @ 8.2 UNITS/KG/HR 9.97 mls/hr IV .Q24H [facility] Rx#: [id number] Other: Voiding Method Toilet Weight 119 kg PHYSICAL EXAMINATION: GENERAL: 63-year-old gentleman in no acute distress at the time of my examination HEENT: Head is atraumatic, normocephalic. Pupils equal, round. Sclera anicteric. Conjunctiva are clear. Mucous membranes of the mouth are moist. Neck is supple. There is no elevated jugular venous pressure. No carotid bruit is heard. HEART EXAMINATION: Heart S1, S2 normal. No murmur or gallop heard. CHEST EXAMINATION: Lungs are clear to auscultation and precussion. No chest wall tenderness is noted on palpation or with deep breathing. ABDOMEN: Soft, nontender. Bowel sounds are heard. No organomegaly noted. EXTREMITIES: 2+ peripheral pulses with no evidence of peripheral edema and no calf tenderness noted. NEUROLOGIC patient is awake, alert and oriented 3 . . Results 09/30/18 10:18 10/01/18 04:39 Cardiac Enzymes 09/30/18 09/30/18 10/01/18 Range/Units 16:26 22:02 04:39 AST 19 (17-59) U/L CK-MB (CK-2) 0.7 0.6 (0.0-2.4) ng/mL Troponin I 0.038 H* 0.047 H* (0.000-0.034) ng/mL Coagulation 09/30/18 10/01/18 Range/Units 20:18 04:39 APTT 25.2 28.6 (22.0-30.0) sec Lipids 10/01/18 Range/Units 04:39 Triglycerides 186 H (<150) mg/dL Cholesterol 211 H (<200) mg/dL HDL Cholesterol 31 L (40-60) mg/dL Comprehensive Metabolic Panel 10/01/18 Range/Units 04:39 Sodium 139 (137-145) mmol/L Potassium 4.4 (3.5-5.1) mmol/L Chloride 110 H (98-107) mmol/L Carbon Dioxide 25 (22-30) mmol/L BUN 20 (9-20) mg/dL Creatinine 0.97 (0.66-1.25) mg/dL Glucose 110 H (74-99) mg/dL Calcium 8.8 (8.4-10.2) mg/dL AST 19 (17-59) U/L ALT 26 (21-72) U/L Alkaline Phosphatase 71 (38-126) U/L Total Protein 6.6 (6.3-8.2) g/dL Albumin 3.6 (3.5-5.0) g/dL Current Medications Generic Name Dose Route Start Last Admin Trade Name Freq PRN Reason Stop Dose Admin Aspirin 325 mg 10/01/18 09:00 10/01/18 09:26 Aspirin PO 325 mg DAILY DERICK Administration Atorvastatin Calcium 40 mg 09/30/18 21:00 09/30/18 19:49 Lipitor PO 40 mg HS DERICK Administration Heparin Sodium (Porcine) 0 unit 10/01/18 05:41 10/01/18 05:56 Heparin IV 4,000 unit PER PROTOCOL PRN Administration Low PTT Protocol Heparin Sodium/Sodium Chloride 250 mls @ 9.97 mls/hr 09/30/18 11:15 10/01/18 11:20 25,000 unit/ Sodium Chloride IV 14.2 units/kg/hr .Q24H [facility]ERICK 17.27 mls/hr Administration Protocol 8.2 UNITS/KG/HR Metoprolol Tartrate 12.5 mg 10/01/18 09:00 10/01/18 09:25 Lopressor PO 12.5 mg BID DERICK Administration Nitroglycerin 0.4 mg 09/30/18 11:12 Nitrostat SUBLINGUAL Q5M PRN Chest Pain Intake and Output 09/30/18 10/01/18 10/01/18 22:59 06:59 14:59 Intake Total 100.531 263.058 46.411 Balance 100.531 263.058 46.411 Intake: IV 160 .9 160 Intake, IV Titration 100.531 103.058 46.411 Amount Heparin Sod,Pork in 0.45% 100.531 103.058 46.411 NaCl 25,000 unit In 0.45 % NaCl 1 250ml.bag @ 8.2 UNITS/KG/HR 9.97 mls/hr IV .Q24H [facility] Rx#: [id number] Other: Voiding Method Toilet Weight 119 kg 09/30/18 10:18 10/01/18 04:39 EKG Interpretations (text) EKG shows normal sinus rhythm with ST-T wave changes noted in the inferior leads. Assessment and Plan Plan: Assessment and plan #1 non-ST elevation HI #2 history of coronary artery disease with prior stent placements #3 hypertension #4 hyperlipidemia #5 nicotine dependence Plan Echocardiogram with Doppler study was performed which revealed an ejection fraction of 40-45% with evidence of inferior hypokinesia. Patient has been advised to undergo cardiac catheterization, the risks and the benefits were again explained to him in detail and he is willing to proceed. We will continue aspirin, increase Lipitor to 80 mg daily, continue IV heparin along with metoprolol and Nitropaste. Further recommendations will be based on these findings and patient's clinical course. DNP note has been reviewed, I agree with a documented findings and plan of care. Patient was seen and examined.
--- NOTE | 2018-10-01 11:44 | P.CRDCN ---
History of Present Illness History of present illness: Patient interviewed and examined. For the last 3 weeks he's been experiencing midsternal chest discomfort with exertion especially in the cold which was relieved with nitroglycerin. He waited this long because he wanted to come to the hospital after the holidays. Twelve-lead ECG shows [address] depressions and abnormal troponins with a flat trend Hemoglobin A1c is mildly elevated Abnormal cholesterol panel LDL 143 total cholesterol 211 triglycerides 186 and HDL 31 Hypertension Current smoker Past history of CAD, noncompliance with medical treatment as well as follow-ups for many many years Kidney function is normal creatinine 0.97 Suggest proceed with coronary angiography discussed with the patient for evaluation of likely non-Q-wave myocardial infarction Aspirin statins dual antiplatelet therapy diabetes management blood pressure management Past Medical History Past Medical History: Coronary Artery Disease (CAD), Myocardial Infarction ([place]) Additional Past Medical History / Comment(s): "in past may have taken bp and cholesterol meds",past kidney stones, umb hernia Last Myocardial Infarction Date:: 1996 History of Any Multi-Drug Resistant Organisms: None Reported Past Surgical History: Heart Catheterization With Stent Additional Past Surgical History / Comment(s): "3 heart caths, 4 stents". Past Anesthesia/Blood Transfusion Reactions: No Reported Reaction Additional Past Anesthesia/Blood Transfusion Reaction / Comment(s): has never had any blood transfusions Date of Last Stent Placement:: unk Smoking Status: Current every day smoker - Past Family History Father Family Medical History: Coronary Artery Disease (CAD) Additional Family Medical History / Comment(s): father is . hx cabg Mother Family Medical History: Cancer Additional Family Medical History / Comment(s): . hx leukemia Medications and Allergies Home Medications Medication Instructions Recorded Confirmed Type No Known Home Medications 09/30/18 09/30/18 History Allergies Allergy/AdvReac Type Severity Reaction Status Date / Time No Known Allergies Allergy Verified 09/30/18 11:06 Physical Exam Vitals: Vital Signs Temp Pulse Pulse Resp BP BP Pulse Ox 10/01/18 11:23 55 L 10/01/18 11:18 55 L 16 140/76 94 L 10/01/18 08:00 97.2 F L 69 16 132/86 93 L 10/01/18 04:00 97.5 F L 65 18 138/72 94 L 09/30/18 23:38 98.0 F 68 17 130/77 95 01/03/19 20:00 97.8 F 71 18 135/92 94 L 09/30/18 17:30 57 L 12 126/68 93 L 09/30/18 17:00 60 20 137/67 93 L 09/30/18 16:30 65 17 138/69 09/30/18 16:00 59 L 9 L 130/69 95 09/30/18 15:30 54 L 15 128/68 92 L 09/30/18 15:00 58 L 20 124/74 09/30/18 14:30 58 L 21 115/88 94 L 09/30/18 14:07 71 16 115/88 98 09/30/18 14:00 69 19 129/88 95 09/30/18 13:30 73 20 130/90 09/30/18 13:00 67 23 132/88 92 L 09/30/18 12:30 73 16 103/69 93 L 09/30/18 12:00 77 17 103/69 96 09/30/18 11:56 76 18 103/69 96 Intake and Output 09/30/18 10/01/18 10/01/18 22:59 06:59 14:59 Intake Total 100.531 263.058 46.411 Balance 100.531 263.058 46.411 Intake: IV 160 .9 160 Intake, IV Titration 100.531 103.058 46.411 Amount Heparin Sod,Pork in 0.45% 100.531 103.058 46.411 NaCl 25,000 unit In 0.45 % NaCl 1 250ml.bag @ 8.2 UNITS/KG/HR 9.97 mls/hr IV .Q24H [facility] Rx#: [id number] Other: Voiding Method Toilet Weight 119 kg Results 09/30/18 10:18 10/01/18 04:39 Cardiac Enzymes 09/30/18 09/30/18 10/01/18 Range/Units 16:26 22:02 04:39 AST 19 (17-59) U/L CK-MB (CK-2) 0.7 0.6 (0.0-2.4) ng/mL Troponin I 0.038 H* 0.047 H* (0.000-0.034) ng/mL Coagulation 01/03/19 01/04/19 Range/Units 20:18 04:39 APTT 25.2 28.6 (22.0-30.0) sec Lipids 10/01/18 Range/Units 04:39 Triglycerides 186 H (<150) mg/dL Cholesterol 211 H (<200) mg/dL HDL Cholesterol 31 L (40-60) mg/dL Comprehensive Metabolic Panel 10/01/18 Range/Units 04:39 Sodium 139 (137-145) mmol/L Potassium 4.4 (3.5-5.1) mmol/L Chloride 110 H (98-107) mmol/L Carbon Dioxide 25 (22-30) mmol/L BUN 20 (9-20) mg/dL Creatinine 0.97 (0.66-1.25) mg/dL Glucose 110 H (74-99) mg/dL Calcium 8.8 (8.4-10.2) mg/dL AST 19 (17-59) U/L ALT 26 (21-72) U/L Alkaline Phosphatase 71 (38-126) U/L Total Protein 6.6 (6.3-8.2) g/dL Albumin 3.6 (3.5-5.0) g/dL Current Medications Generic Name Dose Route Start Last Admin Trade Name Freq PRN Reason Stop Dose Admin Aspirin 325 mg 10/01/18 09:00 10/01/18 09:26 Aspirin PO 325 mg DAILY DERICK Administration Atorvastatin Calcium 40 mg 09/30/18 21:00 09/30/18 19:49 Lipitor PO 40 mg HS DERICK Administration Heparin Sodium (Porcine) 0 unit 10/01/18 05:41 10/01/18 05:56 Heparin IV 4,000 unit PER PROTOCOL PRN Administration Low PTT Protocol Heparin Sodium/Sodium Chloride 250 mls @ 9.97 mls/hr 09/30/18 11:15 10/01/18 11:20 25,000 unit/ Sodium Chloride IV 14.2 units/kg/hr .Q24H [facility] 17.27 mls/hr Administration Protocol 8.2 UNITS/KG/HR Metoprolol Tartrate 12.5 mg 10/01/18 09:00 10/01/18 09:25 Lopressor PO 12.5 mg BID DERICK Administration Nitroglycerin 0.4 mg 09/30/18 11:12 Nitrostat SUBLINGUAL Q5M PRN Chest Pain Intake and Output 09/30/18 10/01/1819 22:59 06:59 14:59 Intake Total 100.531 263.058 46.411 Balance 100.531 263.058 46.411 Intake: IV 160 .9 160 Intake, IV Titration 100.531 103.058 46.411 Amount Heparin Sod,Pork in 0.45% 100.531 103.058 46.411 NaCl 25,000 unit In 0.45 % NaCl 1 250ml.bag @ 8.2 UNITS/KG/HR 9.97 mls/hr IV .Q24H [facility] Rx#: [id number] Other: Voiding Method Toilet Weight 119 kg 09/30/18 10:18 10/01/18 04:39
[2018-10-01] MEDS ORDERED: ALPRAZolam 0.5 MG TAB PO PRN (12:37)
[2018-10-01] MEDS ORDERED: SODIUM CHLORIDE 0.9% 1,000 ML in EMPTY BAG 1 BAG IV ONE (12:37)
[2018-10-01] MEDS ORDERED: ATORVASTATIN 80 MG TAB PO STA (12:37)
[2018-10-01] MEDS ORDERED: ALPRAZolam 0.25 MG TAB PO PRN (12:37)
[2018-10-01] MEDS ORDERED: ASPIRIN 325 MG TAB PO STA (12:37)
[2018-10-01] MEDS ORDERED: NITROGLYCERIN SL TABS 0.4 MG TAB SUBLINGUAL PRN (12:37)
[2018-10-01] MEDS ORDERED: VERAPAMIL 2.5 MG/ML 2 ML AMP ONE (14:45)
[2018-10-01] MEDS ORDERED: LIDOCAINE 1% INJ 10MG/ML (20 ML MDV) ONE (14:46)
[2018-10-01] MEDS ORDERED: HEPARIN SODIUM 1,000 UN/ML (10ML VL) ONE (14:46)
[2018-10-01] MEDS ORDERED: LIDOCAINE 1% INJ 10MG/ML (20 ML MDV) SQ ONE (14:52)
[2018-10-01] MEDS ORDERED: IV FLUID CONTINUATION 1,000 ML IV ONE (15:00)
[2018-10-01] MEDS ORDERED: MIDAZOLAM 2 MG/2 ML VIAL IV ONE ×2 (16:49)
[2018-10-01] MEDS: VERAPAMIL SYRINGE (5 MG/10 ML) INTRAARTER ONE ×2 (16:53→17:20)
[2018-10-01] MEDS ORDERED: HEPARIN SODIUM 1,000 UN/ML (10ML VL) IV ONE (16:55)
--- NOTE | 2018-10-01 17:06 | P.PN ---
Subjective No new events. Chest pain shortness of breath resolved. Patient is awaiting further volition by cardiology likely cardiac catheterization REVIEW OF SYSTEMS: CONSTITUTIONAL: No fever or chills HEENT: No changes in vision or voice CARDIOVASCULAR: no chest pain or abnormal heart beats, or any swelling in ankles or feet. RESPIRATORY: No wheezing or coughing. GASTROINTESTINAL: No abdominal pain, no nausea no vomiting no constipation or diarrhea GENITOURINARY: no any urinary urgency, frequency or burning, and there has been no blood in her urine. no flank pain. MUSCULOSKELETAL: She notes full range of motion of all her joints without pain or swelling. NEUROLOGICAL: , no headache. no vision changes, or fainting. No numbness or tingling. Objective - Vital Signs Vital signs: Vital Signs Temp 97.2 F L 10/01/18 08:00 Pulse 55 L 10/01/18 11:23 Resp 16 10/01/18 11:18 BP 140/76 10/01/18 11:18 Pulse Ox 94 L 10/01/18 11:18 Intake & Output 09/30/18 10/01/18 10/01/18 18:59 06:59 18:59 Intake Total 363.589 46.411 Balance 363.589 46.411 Weight 121.653 kg 119 kg Intake: IV 160 .9 160 Intake, IV Titration 203.589 46.411 Amount Heparin Sod,Pork in 0.45% 203.589 46.411 NaCl 25,000 unit In 0.45 % NaCl 1 250ml.bag @ 8.2 UNITS/KG/HR 9.97 mls/hr IV .Q24H [facility] Rx#: [id number] Other: Voiding Method Toilet # Voids 2 - Exam Vital Signs: I have reviewed the vital signs. GENERAL: Well-nourished, Well-developed , no apparent distress, cooperative Eyes: PERRL, extraoculry movements intact, clear conjunctiva Head: : Atraumatic external nose and ears, oropharyngeal mucosa is moist without lesions or exudates Neck: Symmetric, trachea midline, No thyromegaly, no masses or neck vain pulsation, no neck rigidity CVS: +S1/S2, No murmurs or gallops. Peripheral pulses 2+ and equal in all extremities. RESP: Unlabored respiratory effort. Clear to auscultation bilaterally. Abdomen: Bowel sounds present in all 4 quadrants, Soft to palpation, Nontender/ Nondistended, No hepatosplenomegaly, no hernias or masses, no CVA tnderness Musculoskeletal: Extremities w/o deformity, No cyanosis or clubbing, no joint swelling Skin: Warm, Dry. 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, motor strenght 5/5 i upper and lower extremities, no clonus, patellar DTRs 2+ and sympetrical Psych: Awake, Alert, & Oriented (AAO) x3 Appropriate mood and affect - Labs CBC & Chem 7: 09/30/18 10:18 10/01/18 04:39 Labs: Abnormal Lab Results - Last 24 Hours (Table) 09/30/18 09/30/18 09/30/18 Range/Units 16:26 22:02 22:02 Chloride (98-107) mmol/L Glucose (74-99) mg/dL Hemoglobin A1c 6.3 H (4.0-6.0) % Troponin I 0.038 H* 0.047 H* (0.000-0.034) ng/mL Triglycerides (<150) mg/dL Cholesterol (<200) mg/dL LDL Cholesterol, Calc (0-99) mg/dL HDL Cholesterol (40-60) mg/dL 10/01/18 Range/Units 04:39 Chloride 110 H (98-107) mmol/L Glucose 110 H (74-99) mg/dL Hemoglobin A1c (4.0-6.0) % Troponin I (0.000-0.034) ng/mL Triglycerides 186 H (<150) mg/dL Cholesterol 211 H (<200) mg/dL LDL Cholesterol, Calc 143 H (0-99) mg/dL HDL Cholesterol 31 L (40-60) mg/dL Assessment and Plan Assessment: 1. Non-STEMI Trend troponin MPL Cardiology consultation Continue heparin and antiplatelets Beta blockers Statin Nitroglycerin when necessary chest pains 2. Hyperlipidemia Jignehs 3. Tobacco addiction Smoking cessation 4. Consult social media content specialist for insurance Patient is a full code expected length of stay 2 or more midnights
[2018-10-01] MEDS ORDERED: IOPAMIDOL-370 125ML BTL INJ ONE (17:10)
[2018-10-01] MEDS ORDERED: RX INFO: IV CONTRAST WAS GIVEN 1 EACH MISC MISCELLANE PRN (17:24)
[2018-10-01] MEDS ORDERED: SODIUM CHLORIDE 0.9% 1,000 ML IV SCH (17:30)
[2018-10-01] MEDS: ATORVASTATIN 40 MG TAB PO SCH (19:58)
--- NOTE | 2018-10-01 21:02 | CC ---
CARDIAC CATHETERIZATION REPORT DATE OF SERVICE: October 01, 2018 PERFORMING PHYSICIAN: Rigoberto Aj MD, occ ther. PROCEDURE PERFORMED: 1. Selective right and left coronary angiogram. 2. Left heart catheterization. INDICATION: This is a pleasant 63-year-old gentleman with known history of coronary artery disease and prior stenting of the RCA and left circumflex, presented to the hospital with chest discomfort and was found to have abnormal cardiac enzymes. Also, he underwent an echocardiogram which showed an EF of 40% with wall motion abnormalities concerning for severe underlying coronary artery disease. Because of that, heart catheterization was advised. APPROACH: Right radial artery. COMPLICATION: None. LEVEL OF SEDATION: Moderate with sedation length of 30 minutes. PROCEDURE DESCRIPTION: After obtaining informed consent, the patient was brought to cardiac laboratory director. The right radial artery was cannulated using micropuncture technique, the micropuncture wire passed easily and I placed a 6-Uzbek sheath in the right radial artery. After that, I gave the patient 2 mg of verapamil IA and 6000 units of heparin IV. I did selective right and left coronary angiogram using JR4 and JL3.5 catheters. The left heart catheterization using 6-Uzbek pigtail catheter. The procedure was completed without any complication. SELECTIVE CORONARY ANGIOGRAM: 1. The right coronary artery is chronically occluded in the midportion via stented segment. Reconstitute distally by the bifurcation of PDA and PLV branches. The right coronary artery gives collateral to the distal LAD. 2. The left main is angiographically normal. It bifurcates into the left main has disease appeared to be in the range of 30%. Bifurcates into left circumflex and left anterior descending artery. 3. The left circumflex is a large caliber vessel. It is a nondominant vessel. The proximal circumflex has a lesion appeared to be in the range of 70%. This is just by the bifurcation of OM branch which is a large caliber vessel, appeared to have mild disease only. The mid circumflex appeared to be stented and the stent is patent. The circumflex distally appeared to be angiographically normal. 4. The LAD: The very proximal LAD appeared to have a eccentric lesion in the range of 99.9%. The mid LAD has mild disease only. The very distal LAD appeared to be occluded. HEMODYNAMICS: The left ventricle end diastolic pressure was 12 mmHg with about 20 mm peak to peak gradient across the aortic valve. CONCLUSION: 1. Severe triple-vessel coronary artery disease. 2. Chronic total occlusion of the RCA. 3. Severe disease involving the proximal left circumflex. 4. Critical disease involving the proximal LAD. 5. Mild gradient across the aortic valve. The peak to peak gradient was 20 mmHg. POSTPROCEDURE MANAGEMENT: Given his anatomy, and being noncompliant with medication I did recommend proceeding with coronary artery bypass grafting. MMODL / IJN: [id number] /
[2018-10-01] MEDS: NITROGLYCERIN OINT 1 INCH/GM PACKET TOPICAL SCH (23:42)
[2018-10-02] MEDS: HEPARIN SOD,PORK IN 0.45% NACL 25,000 UNIT in 0.45% NACL 1 250ML.BAG IV SCH (01:58)
[2018-10-02 07:35] LABS: Basophils % (A) 0 %; Eosinophils # (A) 0.3 k/uL (0-0.7); Eosinophils % (A) 3 %; HCT 44.9 % (39.0-53.0); HGB 14.2 gm/dL (13.0-17.5); Lymphocytes # (A) 1.8 k/uL (1.0-4.8); Lymphocytes % (A) 23 %; MCH 28.5 pg (25.0-35.0); MCHC 31.6 g/dL (31.0-37.0); MCV 90.4 fL (80.0-100.0); Mean Platelet Volume 6.6; Monocytes # (A) 0.5 k/uL (0-1.0); Monocytes % (A) 6 %; Neutrophils % (A) 65 %; Platelet Count 263 k/uL (150-450); RBC 4.97 m/uL (4.30-5.90); RDW 13.8 % (11.5-15.5); WBC 7.8 k/uL (3.8-10.6)
[2018-10-02] MEDS ORDERED: MD COMMUNICATION TO PHARMACY 1 EACH MISC PO ONE ×2 (07:54)
[2018-10-02 07:58] LABS: Albumin 3.5 g/dL (3.5-5.0); Calcium 8.9 mg/dL (8.4-10.2); Magnesium 2.4 mg/dL (1.6-2.3); Potassium 4.6 mmol/L (3.5-5.1); Total Bilirubin 0.6 mg/dL (0.2-1.3); Total Protein 6.4 g/dL (6.3-8.2)
--- NOTE | 2018-10-02 08:33 | P.PN ---
Subjective No new events. Chest pain shortness of breath resolved. Cardiac cath showed severe triple vessel disease REVIEW OF SYSTEMS: CONSTITUTIONAL: No fever or chills HEENT: No changes in vision or voice CARDIOVASCULAR: no chest pain or abnormal heart beats, or any swelling in ankles or feet. RESPIRATORY: No wheezing or coughing. GASTROINTESTINAL: No abdominal pain, no nausea no vomiting no constipation or diarrhea GENITOURINARY: no any urinary urgency, frequency or burning, and there has been no blood in her urine. no flank pain. MUSCULOSKELETAL: She notes full range of motion of all her joints without pain or swelling. NEUROLOGICAL: , no headache. no vision changes, or fainting. No numbness or tingling. Objective - Vital Signs Vital signs: Vital Signs Temp 98 F 10/02/18 05:30 Pulse 65 10/02/18 05:30 Resp 16 10/02/18 05:30 BP 115/65 10/02/18 05:30 Pulse Ox 98 10/02/18 07:46 Intake & Output 10/01/18 10/02/18 10/02/18 18:59 06:59 18:59 Intake Total 146.411 250 Balance 146.411 250 Weight 118.9 kg Intake: IV 100 Intake, IV Titration 46.411 250 Amount Heparin Sod,Pork in 0.45% 46.411 250 NaCl 25,000 unit In 0.45 % NaCl 1 250ml.bag @ 8.2 UNITS/KG/HR 9.97 mls/hr IV .Q24H [facility] Rx#: [id number] Other: Voiding Method Toilet # Voids 2 1 - Exam Vital Signs: I have reviewed the vital signs. GENERAL: Well-nourished, Well-developed , no apparent distress, cooperative Eyes: PERRL, extraoculry movements intact, clear conjunctiva Head: : Atraumatic external nose and ears, oropharyngeal mucosa is moist without lesions or exudates Neck: Symmetric, trachea midline, No thyromegaly, no masses or neck vain pulsation, no neck rigidity CVS: +S1/S2, No murmurs or gallops. Peripheral pulses 2+ and equal in all extremities. RESP: Unlabored respiratory effort. Clear to auscultation bilaterally. Abdomen: Bowel sounds present in all 4 quadrants, Soft to palpation, Nontender/ Nondistended, No hepatosplenomegaly, no hernias or masses, no CVA tnderness Musculoskeletal: Extremities w/o deformity, No cyanosis or clubbing, no joint swelling Skin: Warm, Dry. 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, motor strenght 5/5 i upper and lower extremities, no clonus, patellar DTRs 2+ and sympetrical Psych: Awake, Alert, & Oriented (AAO) x3 Appropriate mood and affect - Labs CBC & Chem 7: 10/02/18 05:59 10/02/18 05:59 Labs: Abnormal Lab Results - Last 24 Hours (Table) 10/02/18 10/02/18 Range/Units 05:59 05:59 APTT 33.1 H (22.0-30.0) sec Chloride 110 H (98-107) mmol/L BUN 21 H (9-20) mg/dL Glucose 113 H (74-99) mg/dL Magnesium 2.4 H (1.6-2.3) mg/dL ALT 19 L (21-72) U/L Microbiology - Last 24 Hours (Table) 10/01/18 21:25 Nasal Screen MRSA/MSSA - Preliminary Nasal Swab Assessment and Plan Assessment: 1. Non-STEMI cardiac cath showed severe triple vessel disease pending evaluation by CTS for CABG 2. Hyperlipidemia Statin 3. Tobacco addiction Smoking cessation 4. Discussed with JOSE, pt has Medicaid
[2018-10-02] MEDS ORDERED: MUPIROCIN 2% OINT 22 GM TUBE NASAL SCH (09:00)
[2018-10-02 09:18] VITALS: TEMP 97.7
--- NOTE | 2018-10-02 09:29 | US ---
EXAMINATION TYPE: US carotid duplex BILAT DATE OF EXAM: 10/02/2018 COMPARISON: NONE CLINICAL HISTORY: PreOp Cardiac Surgery. Smoker x 45 years per patient; CAD EXAM MEASUREMENTS: RIGHT: Peak Systolic Velocity (PSV) cm/sec ----- Right CCA: 89.7 ----- Right ICA: 89.4 ----- Right ECA: 81.7 ICA/CCA ratio: 1.0 RIGHT: End Diastole cm/sec ----- Right CCA: 25.9 ----- Right ICA: 15.3 ----- Right ECA: 13.9 LEFT: Peak Systolic Velocity (PSV) cm/sec ----- Left CCA: 122.1 distal ----- Left ICA: 88.6 ----- Left ECA: 154.9 ICA/CCA ratio: 0.7 LEFT: End Diastole cm/sec ----- Left CCA: 38.1 ----- Left ICA: 31.4 ----- Left ECA: 18.9 VERTEBRALS (direction of flow): Right Vertebral: Antegrade Left Vertebral: Antegrade Rhythm: Normal Mixed irregular wall plaque is noted at bilateral carotid bifurcation with abnormally elevated PSV no delmar in mid Left CCA at intimal wall thickening, and in Left ECA mid. IMPRESSION: 1. I DO NOT SEE A HEMODYNAMICALLY SIGNIFICANT STENOSIS IN EITHER COMMON CAROTID OR INTERNAL CAROTID A RTERY. 2. ELEVATED FLOW VELOCITY, LEFT ECA. Criteria for Assigning % of Stenosis / Diameter reduction (Estimation based on the indirect measurements of the internal carotid artery velocities (ICA PSV). 1. Normal (no stenosis)=ICA PSV < 125 cm/s: ratio < 2.0: ICA EDV<40 cm/s. 2. Less than 50% stenosis=ICA PSV < 125 cm/s: ratio < 2.0: ICA EDV<40 cm/s. 3. 50 to 69% stenosis=ICA PSV of 125 to 230 cm/s: ration 2.0 ? 4.0: ICA EDV 40-100 cm/s. 4. Greater than 70% stenosis to near occlusion= ICA PSV > 230 cm/s: ratio > 4.0: ICA EDV > 100 cm/s. 5. Near occlusion= ICA PSV velocities may be low or undetectable: variable ratio and ICA EDV. 6. Total occlusion=unable to detect flow.
[2018-10-02] MEDS: NITROGLYCERIN OINT 1 INCH/GM PACKET TOPICAL SCH (09:43)
[2018-10-02] MEDS: METOPROLOL TARTRATE 12.5 MG TAB PO SCH (09:43)
[2018-10-02] MEDS: ASPIRIN 325 MG TAB PO SCH (09:43)
--- NOTE | 2018-10-02 11:08 | P.PN ---
Subjective Summary: 63-year-old male with history of coronary artery disease and poor adherence and follow-ups coming with chest pain consistent with unstable angina. He underwent cardiac catheterization yesterday showing severe three- vessel disease and he was recommended for CABG. No new events. Chest pain shortness of breath resolved. Cardiac cath showed severe triple vessel disease. Patient is reluctant to proceed with CABG due to problems that would cause with his work. He is waiting to meet with cardiothoracic surgery team to discuss other options. REVIEW OF SYSTEMS: CONSTITUTIONAL: No fever or chills HEENT: No changes in vision or voice CARDIOVASCULAR: no chest pain or abnormal heart beats, or any swelling in ankles or feet. RESPIRATORY: No wheezing or coughing. GASTROINTESTINAL: No abdominal pain, no nausea no vomiting no constipation or diarrhea GENITOURINARY: no any urinary urgency, frequency or burning, and there has been no blood in her urine. no flank pain. MUSCULOSKELETAL: She notes full range of motion of all her joints without pain or swelling. NEUROLOGICAL: , no headache. no vision changes, or fainting. No numbness or tingling. Objective - Vital Signs Vital signs: Vital Signs Temp 97.7 F 10/02/18 09:00 Pulse 70 10/02/18 09:00 Resp 16 10/02/18 09:00 BP 134/67 10/02/18 09:00 Pulse Ox 93 L 10/02/18 09:00 Intake & Output 10/01/18 10/02/18 10/02/18 18:59 06:59 18:59 Intake Total 146.411 250 Balance 146.411 250 Weight 118.9 kg Intake: IV 100 Intake, IV Titration 46.411 250 Amount Heparin Sod,Pork in 0.45% 46.411 250 NaCl 25,000 unit In 0.45 % NaCl 1 250ml.bag @ 8.2 UNITS/KG/HR 9.97 mls/hr IV .Q24H [facility] Rx#: [id number] Other: Voiding Method Toilet Toilet # Voids 2 1 - Exam Vital Signs: I have reviewed the vital signs. GENERAL: Well-nourished, Well-developed , no apparent distress, cooperative Eyes: PERRL, extraoculry movements intact, clear conjunctiva Head: : Atraumatic external nose and ears, oropharyngeal mucosa is moist without lesions or exudates Neck: Symmetric, trachea midline, No thyromegaly, no masses or neck vain pulsation, no neck rigidity CVS: +S1/S2, No murmurs or gallops. Peripheral pulses 2+ and equal in all extremities. RESP: Unlabored respiratory effort. Clear to auscultation bilaterally. Abdomen: Bowel sounds present in all 4 quadrants, Soft to palpation, Nontender/ Nondistended, No hepatosplenomegaly, no hernias or masses, no CVA tnderness Musculoskeletal: Extremities w/o deformity, No cyanosis or clubbing, no joint swelling Skin: Warm, Dry. 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, motor strenght 5/5 i upper and lower extremities, no clonus, patellar DTRs 2+ and sympetrical Psych: Awake, Alert, & Oriented (AAO) x3 Appropriate mood and affect - Labs CBC & Chem 7: 10/02/18 05:59 10/02/18 05:59 Labs: Abnormal Lab Results - Last 24 Hours (Table) 10/02/18 10/02/18 Range/Units 05:59 05:59 APTT 33.1 H (22.0-30.0) sec Chloride 110 H (98-107) mmol/L BUN 21 H (9-20) mg/dL Glucose 113 H (74-99) mg/dL Magnesium 2.4 H (1.6-2.3) mg/dL ALT 19 L (21-72) U/L Microbiology - Last 24 Hours (Table) 10/01/18 21:25 Nasal Screen MRSA/MSSA - Preliminary Nasal Swab Assessment and Plan Assessment: 1. Non-STEMI cardiac cath showed severe triple vessel disease pending evaluation by CTS for CABG 2. Hyperlipidemia Statin 3. Tobacco addiction Smoking cessation 4. Discussed with SW, pt has Medicaid
--- NOTE | 2018-10-02 12:40 | P.CNPUL ---
History of Present Illness Consult date: 10/02/18 Requesting physician: Terrence Perry Reason for consult: other (Radical ventilator/critical care management post CABG ) Chief complaint: Chest pain History of present illness: This is a very pleasant 63-year-old gentleman with a history of hyperlipidemia, coronary artery disease with previous stent placement, chronic and ongoing tobacco dependence of greater than 40 years. Patient presented to the ER in February with complaints of intermittent chest discomfort. He borrowed a friend's bottle of nitroglycerin and was taking them as needed as he was trying to get through the holidays without coming to the hospital. The nitroglycerin did take away the pain. He had been seen and evaluated by cardiology who performed a cardiac catheterization that revealed severe triple- vessel disease. There was chronic occlusion of the RCA, severe disease involving the proximal left circumflex, critical disease involving the proximal LAD. Impaired left ventricular systolic function with ejection fraction 35-40% . Based on his history of noncompliance with medication and coronary anatomy he was recommended coronary artery bypass grafting. Cardiac Doppler showed no hemodynamically stable significant stenosis. Chest x-ray revealed evidence of COPD but no acute pulmonary process. We're consulted regarding postoperative mechanical ventilation and critical care management. He is seen today in consultation on the selective care unit. He is awake and alert in no acute distress. He denies any worsening shortness of breath, cough or congestion. He has not been on any inhalers in the past. Able to do his day-to-day activities without significant shortness of breath prior to the episodes of chest pain. He is maintaining O2 saturations in the 90s on room air. He's been afebrile. Hemodynamically stable. No chest pain currently. Review of Systems Constitutional: Denies chills, Denies fever Eyes: denies blurred vision, denies decreased vision Ears: deny: decreased hearing Ears, nose, mouth and throat: Denies headache, Denies sore throat Cardiovascular: Reports chest pain, Reports dyspnea on exertion Respiratory: Reports dyspnea Gastrointestinal: Denies abdominal pain, Denies diarrhea, Denies nausea, Denies vomiting Genitourinary: Reports as per HPI Musculoskeletal: Denies myalgias Integumentary: Denies pruritus, Denies rash Neurological: Denies numbness, Denies weakness Psychiatric: Denies anxiety, Denies depression Endocrine: Denies fatigue, Denies weight change Hematologic/Lymphatic: Reports as per HPI Allergic/Immunologic: Reports as per HPI Past Medical History Past Medical History: Coronary Artery Disease (CAD), Hyperlipidemia, Myocardial Infarction (DE) Additional Past Medical History / Comment(s): "in past may have taken bp and cholesterol meds",past kidney stones, umb hernia Last Myocardial Infarction Date:: 1996 History of Any Multi-Drug Resistant Organisms: None Reported Past Surgical History: Heart Catheterization With Stent Additional Past Surgical History / Comment(s): "3 heart caths, 4 stents". Past Anesthesia/Blood Transfusion Reactions: No Reported Reaction Additional Past Anesthesia/Blood Transfusion Reaction / Comment(s): has never had any blood transfusions Date of Last Stent Placement:: unk Past Psychological History: No Psychological Hx Reported Smoking Status: Current every day smoker Past Alcohol Use History: None Reported Past Drug Use History: None Reported - Past Family History Father Family Medical History: Coronary Artery Disease (CAD) Additional Family Medical History / Comment(s): father is . hx cabg Mother Family Medical History: Cancer Additional Family Medical History / Comment(s): . hx leukemia Medications and Allergies Home Medications Medication Instructions Recorded Confirmed Type No Known Home Medications 09/30/18 09/30/18 History Allergies Allergy/AdvReac Type Severity Reaction Status Date / Time No Known Allergies Allergy Verified 09/30/18 11:06 Physical Exam Vitals: Vital Signs Temp Pulse Resp BP Pulse Ox 10/02/18 09:00 97.7 F 70 16 134/67 93 L 10/02/18 07:46 98 10/02/18 05:30 98 F 65 16 115/65 95 10/02/18 04:00 98.1 F 60 17 120/70 93 L 10/01/18 23:59 98 F 82 17 135/67 93 L 10/01/18 21:23 97.8 F 78 16 152/83 91 L 10/01/18 20:30 97.3 F L 65 17 130/80 93 L 10/01/18 20:00 66 16 10/01/18 19:30 97.6 F 66 16 134/79 93 L 10/01/18 19:00 59 L 140/78 10/01/18 18:30 58 L 114/62 10/01/18 18:15 62 14 105/66 92 L 10/01/18 18:00 58 L 14 123/73 92 L 10/01/18 17:45 16 145/73 93 L Intake and Output 10/01/18 10/02/18 10/02/18 22:59 06:59 14:59 Intake Total 100 250 Balance 100 250 Intake: IV 100 Intake, IV Titration 250 Amount Heparin Sod,Pork in 0.45% 250 NaCl 25,000 unit In 0.45 % NaCl 1 250ml.bag @ 8.2 UNITS/KG/HR 9.97 mls/hr IV .Q24H [facility] Rx#: [id number] Other: Voiding Method Toilet Toilet Toilet # Voids 1 Weight 118.9 kg - Constitutional General appearance: average body habitus, no acute distress - EENT Eyes: EOMI, PERRLA ENT: hearing grossly normal Ears: bilateral: normal - Neck Neck: normal ROM Carotids: bilateral: upstroke normal Thyroid: bilateral: normal size - Respiratory Respiratory: bilateral: CTA, diminished - Cardiovascular Rhythm: regular Heart sounds: normal: S1, S2 - Gastrointestinal General gastrointestinal: normal bowel sounds - Integumentary Integumentary: normal turgor - Neurologic Neurologic: CNII-XII intact - Musculoskeletal Musculoskeletal: gait normal - Psychiatric Psychiatric: A&O x's 3, appropriate affect, intact judgment & insight Results - Laboratory Findings CBC and BMP: 10/02/18 05:59 10/02/18 05:59 PT/INR, D-dimer PT 9.9 sec (9.0-12.0) 09/30/18 10:18 INR 0.9 (<1.2) 09/30/18 10:18 Abnormal lab findings: Abnormal Labs 09/30/18 09/30/18 09/30/18 10:18 10:18 16:26 APTT Chloride BUN 21 H Glucose 107 H Hemoglobin A1c Magnesium ALT Troponin I 0.036 H* 0.038 H* Triglycerides Cholesterol LDL Cholesterol, Calc HDL Cholesterol 09/30/18 09/30/18 10/01/18 22:02 22:02 04:39 APTT Chloride 110 H BUN Glucose 110 H Hemoglobin A1c 6.3 H Magnesium ALT Troponin I 0.047 H* Triglycerides 186 H Cholesterol 211 H LDL Cholesterol, Calc 143 H HDL Cholesterol 31 L 10/02/18 10/02/18 05:59 05:59 APTT 33.1 H Chloride 110 H BUN 21 H Glucose 113 H Hemoglobin A1c Magnesium 2.4 H ALT 19 L Troponin I Triglycerides Cholesterol LDL Cholesterol, Calc HDL Cholesterol - Diagnostic Findings Chest x-ray: image reviewed (COPD no acute process) Assessment and Plan Assessment: Impression: #1 Chest pain in a patient found to have severe triple-vessel coronary artery disease and recommended coronary artery bypass grafting. #2 Previous history of coronary artery disease with multiple stent placements. #3 Chronic and ongoing tobacco dependence of greater than 40 years. #4 Hypertension. #5 Hyperlipidemia. #6 History of medication noncompliance. On no home medications. [place]: The patient was seen and evaluated by Dr. Lei. Chest x-ray and labs were reviewed. The patient most likely has significant COPD though he states he's mainly asymptomatic in the outpatient setting. Bedside spirometry to be performed preoperatively. Incentive spirometer education. Bronchodilators in the postoperative period. The patient is somewhat reluctant to proceed with the surgery at this time despite given the rationale regarding the significance of his coronary artery disease including the risk of cardiac arrest or even . He may choose to go home and think about it further. We will await further instruction from the patient. In the interim, we'll continue to follow and make recommendations based on his clinical status. I, the cosigning physician, performed a history & physical examination of the patient. Lungs sounds are clear. Maintaining good O2 saturations in the 90s on room air. I discussed the assessment and plan of care with my nurse practitioner, Adrianne Robert. I attest to the above consultation as dictated by her. Time with Patient: Greater than 30
--- NOTE | 2018-10-02 12:51 | P.DS ---
Providers Date of admission: 09/30/18 11:12 Attending physician: Sonam Martinez DO Consults: 09/30/18 11:12 Consult Physician Urgent Consulting Provider: [facility] Consult Reason/Comments: Unstable angina Do you want consulting provider notified?: Yes 10/01/18 17:25 Consult Physician Routine Consulting Provider: Aristeo Ivan Consult Reason/Comments: eval. for CABG Do you want consulting provider notified?: Already Contacted 10/02/18 07:54 Consult Physician Routine Consulting Provider: Ema Lei Consult Reason/Comments: Pulmonary Management Do you want consulting provider notified?: Yes Primary care physician: Stated None Hospital Course: Date of admission: 09/30/2018 Left AGAINST MEDICAL ADVICE: 10/02/2018 Reason for admission: Chest pain Discharge diagnosis: 1. Unstable angina 2. 3-vessel coronary artery disease necessitating CABG 3. Hypertension 4. Obesity Consultants: Matthew baig Pulmonary service Cardiothoracic surgery Pertinent studies: 1. Cardiac catheterization on 10/01/2018 2. Echocardiogram Reason for admission: This is a 63-year-old male who has extensive history of coronary artery disease with multiple percutaneous interventions, who is not compliant with his medical follow-ups or home medications recommended to use, presented to emergency department with complaint of 2 weeks of intermittent retrosternal chest pain and squeezing like sensation accompanied by some diaphoresis and shortness of breath. Episodes were present on exertion and cold weather and emotional stress and progressed to be present even at rest. Episodes were resolving with nitroglycerin that he bore from his friend. Due to increase frequency of this episode of chest pain and increased usage of nitroglycerin patient decided to come to emergency department. Hospital course: In the emergency department EKG was without any acute ST or T wave changes, troponin negative and chest x-ray unremarkable. He was placed on heparin drip antiplatelets beta stew statin. Cardiology evaluated the patient. Echocardiogram showed preserved EF with no significant valvular abnormality. Cardiac catheterization done showed . severe coronary artery disease three- vessel disease with 100% occlusion of RCA. He was recommended for evaluation by cardiothoracic surgery for CABG. 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 After discussion with the cardiothoracic surgery team and options patient decided to decline surgery and to leave AGAINST MEDICAL ADVICE. We did indicate to him risks of these decision including significant morbidity or even . He still was adamant to leave. He plans to follow-up in cardiology office for other options for revascularization. I provided patient with prescription for aspirin, Lipitor, Lopressor and sublingual nitroglycerin and this he was not taking his medications prior to this admission. I discussed with case management the patient has Medicaid insurance and he can follow-up in office with primary care physician and/or cardiology. Disposition: Left AGAINST MEDICAL ADVICE Plan - Discharge Summary Discharge Rx Participant: No New Discharge Prescriptions: New Aspirin EC [Ecotrin Low Dose] 81 mg PO DAILY #30 tablet. Atorvastatin [Lipitor] 40 mg PO HS #30 tab Metoprolol Tartrate [Lopressor] 12.5 mg PO BID #60 tab Nitroglycerin Sl Tabs [Nitrostat] 0.4 mg SUBLINGUAL Q5M PRN #10 tab PRN Reason: Chest Pain Discharge Medication List Aspirin EC [Ecotrin Low Dose] 81 mg PO DAILY #30 tablet. 10/02/18 [Rx] Atorvastatin [Lipitor] 40 mg PO HS #30 tab 10/02/18 [Rx] Metoprolol Tartrate [Lopressor] 12.5 mg PO BID #60 tab 10/02/18 [Rx] Nitroglycerin Sl Tabs [Nitrostat] 0.4 mg SUBLINGUAL Q5M PRN #10 tab 10/02/18 [Rx ] Follow up Appointment(s)/Referral(s): Colby Pierre MD [STAFF PHYSICIAN] - 10 Days None,Stated [Primary Care Provider] - 1-2 days Discharge Disposition: Left Against Medical Advice
[2018-10-02 13:05] VITALS: BP 127/65; PULSE 67; RESP 18
--- NOTE | 2018-10-02 13:30 | P.GSCN ---
History of Present Illness Consult date: 10/02/18 Reason for Consult: Non-STEMI this admission, multivessel coronary artery disease. Evaluation for myocardial revascularization surgery. 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 He is a past medical history significant for coronary artery disease with prior stent placement, hypertension , hyperlipidemia, history of medical noncompliance and chronic ongoing tobacco abuse. The patient presented to the emergency department here at [facility] on 09/30/2018 with complaints of episodes of chest pain which she reports has been ongoing for the last 3 weeks. The patient denies any complaints of shortness of breath, nausea, vomiting, fever, chills, diaphoresis or syncope. He reports the episodes of chest pain were precipitated by walking out in the cold weather and he also reports that the chest pain radiated down his left arm. During episodes of chest pain he took some sublingual nitroglycerin tablets which were given to him by his cousin. The nitroglycerin according to the patient did help with relieving his chest pain. A 12-lead EKG was completed in the emergency department which showed him to be in normal sinus rhythm with STT wave changes in his inferior leads. His presenting lab work demonstrated a WBC count 10.1, Hgb 15.8, platelet count 312, hemoglobin A1c slightly elevated at 3.6%, BUN 20, creatinine 0.9, and elevated troponins as high as 0.047. The troponin level this morning was 0.033. A chest x-ray was completed which showed hyperinflation suggestive of COPD and biapical pleural thickening. For further evaluation and 2-D echocardiogram was completed which showed basal inferior LV wall motion hypokinesis, basal inferior septal LV wall motion hypokinesis, mild inferior LV wall motion hypokinesis, mild inferior septal LV wall motion hypokinesis, trace mitral valve regurgitation, trace tricuspid valve regurgitation, and his overall left ventricular systolic function to be mild to moderately impaired with ejection fraction between 40 and 45%. Subsequently due to the patient's presenting symptoms, elevated troponins and history of coronary artery disease a consult was placed to Dr. Pierre from [facility]. After obtaining consent he was taken to the cardiac catheterization lab where Dr. Aj performed a selective right and left coronary angiogram which demonstrated severe triple- vessel coronary artery disease with chronic total occlusion of the right coronary artery and the right coronary artery gives collateral to the distal left anterior descending coronary artery, severe disease involving the proximal left circumflex coronary artery with a stenosis of 70% and a critical stenosis to his very proximal left anterior descending coronary artery with a stenosis in the range of 99%. The heart catheterization results were reviewed with the patient by Dr. Aj and a consult was placed to Dr. Aristeo Ivan from cardiothoracic surgery for evaluation and recommendations on myocardial revascularization surgery. Review of Systems A 14 point review of systems was completed and was negative except as mentioned in the HPI. Past Medical History Past Medical History: Coronary Artery Disease (CAD), Hyperlipidemia, Hypertension, Myocardial Infarction (ME) Additional Past Medical History / Comment(s): "in past may have taken bp and cholesterol meds",past kidney stones, umbilical hernia, obesity with a BMI of 39.9 kg/m. Last Myocardial Infarction Date:: 09/30/2018 History of Any Multi-Drug Resistant Organisms: None Reported Past Surgical History: Heart Catheterization With Stent Additional Past Surgical History / Comment(s): "3 heart caths, 4 stents". Past Anesthesia/Blood Transfusion Reactions: No Reported Reaction Additional Past Anesthesia/Blood Transfusion Reaction / Comm: has never had any blood transfusions Date of Last Stent Placement:: Unknown Past Psychological History: No Psychological Hx Reported Smoking Status: Current every day smoker Past Alcohol Use History: None Reported Past Drug Use History: None Reported - Past Family History Father Family Medical History: Congestive Heart Failure (CHF), Coronary Artery Disease (CAD) (History of CABG) Additional Family Medical History / Comment(s): Father at age 79. Mother Family Medical History: Cancer Additional Family Medical History / Comment(s): Mother at age 58, leukemia Brother(s) Additional Family Medical History / Comment(s): One of his 3 brothers at the age of 54 from an aneurysm. His oldest brother recently had a cardiac stent placed at age 67. Medications and Allergies Home Medications Medication Instructions Recorded Confirmed Type Aspirin EC [Ecotrin Low Dose] 81 mg PO DAILY #30 tablet. 10/02/18 Rx Atorvastatin [Lipitor] 40 mg PO HS #30 tab 10/02/18 Rx Metoprolol Tartrate [Lopressor] 12.5 mg PO BID #60 tab 10/02/18 Rx Nitroglycerin Sl Tabs [Nitrostat] 0.4 mg SUBLINGUAL Q5M PRN #10 tab 10/02/18 Rx Allergies Allergy/AdvReac Type Severity Reaction Status Date / Time No Known Allergies Allergy Verified 09/30/18 11:06 Surgical - Exam Vital Signs Temp Pulse Resp BP Pulse Ox 97.9 F 96 25 H 169/99 95 09/30/18 09:58 09/30/18 09:58 09/30/18 09:58 09/30/18 09:58 09/30/18 09:58 - General well developed, well nourished, no distress, no pain, obese - Eyes PERRL, normal ocular movement - ENT normal pinna, normal nares, normal mucosa, no hearing loss, no congestion, poor retirement - Neck Neck supple, no lymphadenopathy. no masses, no bruits, trachea midline, no venous distension - Respiratory Lungs sounds essentially clear throughout. Respirations are symmetrical and nonlabored. No wheezing, no crackles. Oxygen saturations are 94% on room air. - Cardiovascular Regular rhythm and rate. S1 and S2 present, negative for S3, gallop or murmur. +1 edema to his bilateral lower extremities. Remote telemetry showing normal sinus rhythm heart rate 63. - Abdomen Abdomen is soft, nontender and nondistended. Active bowel sounds all 4 abdominal quadrants. No organomegaly. No guarding or rigidity. Hernia: umbilical - Genitourinary Deferred - Rectum Deferred - Integumentary no rash, no growths, no abnormal pigmentation - Neurologic normal coordination, normal sensation - Musculoskeletal normal gait, normal posture - Psychiatric oriented to time, oriented to person, oriented to place, speech is normal, memory intact Results - Labs 10/02/18 05:59 10/02/18 05:59 Abnormal Lab Results - Last 24 Hours (Table) 10/02/18 10/02/18 Range/Units 05:59 05:59 APTT 33.1 H (22.0-30.0) sec Chloride 110 H (98-107) mmol/L BUN 21 H (9-20) mg/dL Glucose 113 H (74-99) mg/dL Magnesium 2.4 H (1.6-2.3) mg/dL ALT 19 L (21-72) U/L Microbiology - Last 24 Hours (Table) 10/01/18 21:25 Nasal Screen MRSA/MSSA - Preliminary Nasal Swab Diabetes panel 10/02/18 Range/Units 05:59 Sodium 140 (137-145) mmol/L Potassium 4.6 (3.5-5.1) mmol/L Chloride 110 H (98-107) mmol/L Carbon Dioxide 25 (22-30) mmol/L BUN 21 H (9-20) mg/dL Creatinine 1.08 (0.66-1.25) mg/dL Glucose 113 H (74-99) mg/dL Calcium 8.9 (8.4-10.2) mg/dL AST 17 (17-59) U/L ALT 19 L (21-72) U/L Alkaline Phosphatase 74 (38-126) U/L Total Protein 6.4 (6.3-8.2) g/dL Albumin 3.5 (3.5-5.0) g/dL Thyroid panel 10/02/18 Range/Units 05:59 TSH 1.660 (0.465-4.680) mIU/L Calcium panel 10/02/18 Range/Units 05:59 Calcium 8.9 (8.4-10.2) mg/dL Albumin 3.5 (3.5-5.0) g/dL Pituitary panel 10/02/18 Range/Units 05:59 Sodium 140 (137-145) mmol/L Potassium 4.6 (3.5-5.1) mmol/L Chloride 110 H (98-107) mmol/L Carbon Dioxide 25 (22-30) mmol/L BUN 21 H (9-20) mg/dL Creatinine 1.08 (0.66-1.25) mg/dL Glucose 113 H (74-99) mg/dL Calcium 8.9 (8.4-10.2) mg/dL TSH 1.660 (0.465-4.680) mIU/L Adrenal panel 10/02/18 Range/Units 05:59 Sodium 140 (137-145) mmol/L Potassium 4.6 (3.5-5.1) mmol/L Chloride 110 H (98-107) mmol/L Carbon Dioxide 25 (22-30) mmol/L BUN 21 H (9-20) mg/dL Creatinine 1.08 (0.66-1.25) mg/dL Glucose 113 H (74-99) mg/dL Calcium 8.9 (8.4-10.2) mg/dL Total Bilirubin 0.6 (0.2-1.3) mg/dL AST 17 (17-59) U/L ALT 19 L (21-72) U/L Alkaline Phosphatase 74 (38-126) U/L Total Protein 6.4 (6.3-8.2) g/dL Albumin 3.5 (3.5-5.0) g/dL - Imaging Comments: Dr. Ivan reviewed the cardiac catheterization films and 2-D echocardiogram films. Chest x-ray: report reviewed, image reviewed Assessment and Plan (1) Coronary artery disease Current Visit: Yes Status: Acute Code(s): I25.10 - ATHSCL HEART DISEASE OF [place] CORONARY ARTERY W/O ANG PCTRS SNOMED Code(s): 83282318 (2) Hypertension Current Visit: Yes Status: Acute Code(s): I10 - ESSENTIAL (PRIMARY) HYPERTENSION SNOMED Code(s): 55547518 (3) Hyperlipidemia Current Visit: Yes Status: Acute Code(s): E78.5 - HYPERLIPIDEMIA, UNSPECIFIED SNOMED Code(s): 31330658 (4) Elevated hemoglobin A1c measurement Current Visit: Yes Status: Acute Code(s): R73.09 - OTHER ABNORMAL GLUCOSE SNOMED Code(s): 035852237 (5) NSTEMI (non-ST elevated myocardial infarction) Current Visit: Yes Status: Acute Code(s): I21.4 - NON-ST ELEVATION (NSTEMI) MYOCARDIAL INFARCTION SNOMED Code(s): 01199298 (6) Unstable angina pectoris Current Visit: Yes Status: Acute Code(s): I20.0 - UNSTABLE ANGINA SNOMED Code(s): 3497443 Plan: The patient was seen and examined. His chart and diagnostics were reviewed. The patient was seen and examined by Dr. Aristeo Ivan from cardiothoracic surgery. Dr. Ivan reviewed the cardiac catheterization and 2-D echocardiogram results with the patient and feels that the patient would be a good candidate for myocardial revascularization surgery. Preoperative testing and preoperative teaching has been initiated. Dr. Ivan discussed the risks and benefits of myocardial vascularization surgery with the patient and the patient wishes to think about the surgery versus PCI and would like to go home today. The patient wishes to leave the hospital today AGAINST MEDICAL ADVICE. He reports that he will follow-up with Dr. Ivan in the office next week once he has made a decision how to proceed myocardial revascularization versus PCI. Dr. Ivan discussed the risks of leaving the hospital AGAINST MEDICAL ADVICE and the patient states that he understands the risks. A 5 m walk test was completed with the patient time 1: 3.86 seconds, time 2: 4.40 seconds, time 3: 3.58 seconds. A bedside FEV1 was completed by respiratory therapy which showed a predicted value of 73%. Thank you Dr. Aj for this consult and we look forward to working with you in the care of your patient. Time with Patient: Greater than 30
--- NOTE | 2018-10-02 13:54 | P.PN ---
Subjective Progress Note Date: 10/02/18 History of present illness: This is a 63-year-old gentleman with known history of coronary artery disease and prior stent placements in the past. The most recent stent was placed 9 years ago. Patient states he has never had a myocardial infarction in the past, he does have hypertension, hyperlipidemia, and he does smoke cigarettes. 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 The past 9 years he has been relatively symptom-free. He presents to the hospital on this occasion with symptoms of midsternal chest pressure and heaviness with radiation down his left arm. He feels that the symptoms were precipitated by walking out into cold weather. He has been having symptoms off and on the past 3 weeks. White blood cell count 10.1, hemoglobin 15.8, platelet count 312. Sodium 139, potassium 4.4, BUN 20, creatinine 0.9. Hemoglobin A1c 6.3. Troponins 0.036, 0.038, 0.047. Cholesterol is 211, LDL 143, HDL 31, triglycerides 186. He was initiated on IV heparin in the emergency room, he is currently chest pain-free. His EKG on arrival here showed a normal sinus rhythm with ST-T wave changes noted in the inferior leads. Chest x-ray showed COPD. Patient did have an echocardiogram with Doppler study performed which revealed an ejection fraction of 40-45%. Basal and mid inferior septal hypokinesia noted. 10/02/2018 Patient seen to the cardiac catheterization number he was found to have severe triple-vessel coronary artery disease. Chronic total occlusion of the RCA, severe disease in the proximal circumflex, critical disease in the proximal LAD. Cardiothoracic surgery has been consulted for possible bypass surgery, patient also states that he will be compliant with his medication and wants still the risks and the benefits of both procedures, either bypass or PCI. This morning patient feels well, denies any chest pain or difficulty in breathing. He states that he does not want to stay in the hospital to have either procedure done, he wants to go home and think about it. He is willing to take all of his medications and states that he will follow-up in the office early next week. He will leave AGAINST MEDICAL ADVICE today. Objective - Vital Signs Vital signs: Vital Signs Temp 97.7 F 10/02/18 09:00 Pulse 67 10/02/18 12:00 Resp 18 10/02/18 12:00 BP 127/65 10/02/18 12:00 Pulse Ox 94 L 10/02/18 12:00 Intake & Output 10/01/18 10/02/18 10/02/18 18:59 06:59 18:59 Intake Total 146.664 070 3300 Balance 146.032 452 4432 Weight 118.9 kg Intake: IV 100 Intake, IV Titration 46.411 250 Amount Heparin Sod,Pork in 0.45% 46.411 250 NaCl 25,000 unit In 0.45 % NaCl 1 250ml.bag @ 8.2 UNITS/KG/HR 9.97 mls/hr IV .Q24H DERICK Rx#: [id number] Oral 1200 Other: Voiding Method Toilet Toilet # Voids 2 1 3 - Exam PHYSICAL EXAMINATION: GENERAL: 83-year-old gentleman in no acute distress at the time of my examination HEENT: Head is atraumatic, normocephalic. Pupils equal, round. Sclera anicteric. Conjunctiva are clear. Mucous membranes of the mouth are moist. Neck is supple. There is no elevated jugular venous pressure. No carotid bruit is heard. HEART EXAMINATION: Heart S1, S2 normal. No murmur or gallop heard. CHEST EXAMINATION: Lungs are clear to auscultation and precussion. No chest wall tenderness is noted on palpation or with deep breathing. ABDOMEN: Soft, nontender. Bowel sounds are heard. No organomegaly noted. EXTREMITIES: 2+ peripheral pulses with no evidence of peripheral edema and no calf tenderness noted. Right radial site clean and dry, good distal pulse. NEUROLOGIC patient is awake, alert and oriented 3 . . - Labs CBC & Chem 7: 10/02/18 05:59 10/02/18 05:59 Labs: Abnormal Lab Results - Last 24 Hours (Table) 10/02/18 10/02/18 Range/Units 05:59 05:59 APTT 33.1 H (22.0-30.0) sec Chloride 110 H (98-107) mmol/L BUN 21 H (9-20) mg/dL Glucose 113 H (74-99) mg/dL Magnesium 2.4 H (1.6-2.3) mg/dL ALT 19 L (21-72) U/L Microbiology - Last 24 Hours (Table) 10/01/18 21:25 Nasal Screen MRSA/MSSA - Preliminary Nasal Swab Assessment and Plan Plan: Assessment and plan #1 non-ST elevation NE, status post cardiac catheterization which revealed severe triple-vessel coronary artery disease with chronic total occlusion of the RCA, severe disease involving the proximal left circumflex, critical disease in the LAD. #2 history of coronary artery disease with prior stent placements #3 hypertension #4 hyperlipidemia #5 nicotine dependence Plan Echocardiogram with Doppler study was performed which revealed an ejection fraction of 40-45% with evidence of inferior hypokinesia. Patient has been advised to stay in the hospital, cardiothoracic surgery has seen the patient, he is also been given the option of possible PCI. Patient also at this time to sign out AGAINST MEDICAL ADVICE and go home and think about it. He does state that he will take his medication as prescribed and will follow-up in the office early next week. He has been provided prescriptions for all of his medications. DNP note has been reviewed, I agree with a documented findings and plan of care. Patient was seen and examined.
[2018-10-02 17:52] LABS: Hepatitis A Antibody IgM Non-Reactive (Non-Reactive); Hepatitis B Core IgM Non-Reactive (Non-Reactive)
== END 2018-10-02 13:20 | disposition left against medical advice (07) | DRG 282 ==
LOC: EC 09:56 → 3SCARD 11:12
PROVIDERS: ADMIT Internal Medicine; ATTEND Internal Medicine
PROC: B2111ZZ Fluoroscopy of Multiple Coronary Arteries using Low Osmolar Contrast (ICD-10-PCS; 2018-10-01)
PROC: B2151ZZ Fluoroscopy of Left Heart using Low Osmolar Contrast (ICD-10-PCS; 2018-10-01)
PROC: 4A023N7 Measurement of Cardiac Sampling and Pressure, Left Heart, Percutaneous Approach (ICD-10-PCS; principal; 2018-10-01 14:50)
DX: I21.4 Non-ST elevation (NSTEMI) myocardial infarction (principal); E66.9 Obesity, unspecified; E78.5 Hyperlipidemia, unspecified; Z71.6 Tobacco abuse counseling; F17.210 Nicotine dependence, cigarettes, uncomplicated; I10 Essential (primary) hypertension; I25.10 Atherosclerotic heart disease of native coronary artery without angina pectoris; I25.2 Old myocardial infarction; I49.3 Ventricular premature depolarization; J44.9 Chronic obstructive pulmonary disease, unspecified; Z80.6 Family history of leukemia; Z82.49 Family history of ischemic heart disease and other diseases of the circulatory system; T50.906A Underdosing of unspecified drugs, medicaments and biological substances, initial encounter; Z91.128 Patient's intentional underdosing of medication regimen for other reason; Z91.19 Patient's noncompliance with other medical treatment and regimen; Z95.5 Presence of coronary angioplasty implant and graft; Z68.39 Body mass index [BMI] 39.0-39.9, adult; R73.09 Other abnormal glucose
CPT/HCPCS: 36415; 71046; 80053; 80061; 80074; 82550; 82553; 83036; 83735; 84443; 84484; 85025; 85610; 85730; 87070; 93005; 93306; 93458; 93880; 93922; 93970; 96365; 96366; 96376; 99291

== ENCOUNTER 2018-10-13 13:15 | Day surgery (SDC) | payer OTHER ==
[2018-10-12 10:18] VITALS: BMI 38.7
[~2018-10-13 13:15] MED LIST: ALPRAZolam 0.25 MG TAB PO PRN; ALPRAZolam 0.5 MG TAB PO PRN; ASPIRIN 325 MG TAB PO STA; ATORVASTATIN 80 MG TAB PO STA; NITROGLYCERIN SL TABS 0.4 MG TAB SUBLINGUAL PRN; SODIUM CHLORIDE 0.9% 1,000 ML in EMPTY BAG 1 BAG IV ONE
[2018-10-13 14:33] LABS: Basophils % (A) 0 %; Eosinophils # (A) 0.2 k/uL (0-0.7); Eosinophils % (A) 2 %; HCT 44.8 % (39.0-53.0); HGB 15.2 gm/dL (13.0-17.5); Lymphocytes # (A) 1.8 k/uL (1.0-4.8); Lymphocytes % (A) 16 %; MCH 29.8 pg (25.0-35.0); MCHC 33.9 g/dL (31.0-37.0); MCV 87.9 fL (80.0-100.0); Mean Platelet Volume 6.3; Monocytes # (A) 0.6 k/uL (0-1.0); Monocytes % (A) 5 %; Neutrophils # (A) 8.6 k/uL (1.3-7.7); Neutrophils % (A) 76 %; Platelet Count 306 k/uL (150-450); WBC 11.4 k/uL (3.8-10.6)
[2018-10-13 15:12] LABS: Calcium 9.3 mg/dL (8.4-10.2); Potassium 4.7 mmol/L (3.5-5.1)
[2018-10-13] MEDS ORDERED: LIDOCAINE 1% INJ 10MG/ML (20 ML MDV) ONE (16:04)
[2018-10-13] MEDS ORDERED: fentaNYL (PF) 50 MCG/ML 2 ML AMP ONE (16:05)
[2018-10-13] MEDS: fentaNYL (PF) 50 MCG/ML 2 ML AMP IVP ONE ×2 (16:23→16:53)
[2018-10-13] MEDS ORDERED: MIDAZOLAM 2 MG/2 ML VIAL IVP ONE (16:23)
[2018-10-13] MEDS ORDERED: LIDOCAINE 1% INJ 10MG/ML (20 ML MDV) SQ ONE (16:25)
[2018-10-13] MEDS ORDERED: BIVALIRUDIN 250 MG in SODIUM CHLORIDE 0.9% 33 ML IV ONE (16:30)
[2018-10-13] MEDS ORDERED: BIVALIRUDIN BOLUS 250 MG/50 ML IV ONE (16:30)
[2018-10-13] MEDS ORDERED: NITROGLYCERIN 1000MCG/10ML SYRINGE INTRACORON ONE (16:37)
[2018-10-13] MEDS ORDERED: CLOPIDOGREL 75 MG TAB ONE (16:46)
[2018-10-13] MEDS ORDERED: CLOPIDOGREL 75 MG TAB PO ONE (16:48)
[2018-10-13] MEDS ORDERED: IOPAMIDOL-370 125ML BTL INJ ONE (16:48)
[2018-10-13] MEDS ORDERED: ZOLPIDEM 5 MG TAB PO PRN (16:54)
[2018-10-13] MEDS ORDERED: NITROGLYCERIN SL TABS 0.4 MG TAB SUBLINGUAL PRN ×2 (16:54)
[2018-10-13] MEDS ORDERED: RX INFO: IV CONTRAST WAS GIVEN 1 EACH MISC MISCELLANE PRN (16:54)
[2018-10-13] MEDS ORDERED: MAG HYDROX/AL HYDROX/SIMETH 30 ML CUP PO PRN (16:54)
[2018-10-13] MEDS ORDERED: ATROPINE SULFATE 0.1 MG/ML 10ML SYRINGE IV PRN (16:54)
[2018-10-13] MEDS ORDERED: SODIUM CHLORIDE 0.9% 1,000 ML IV SCH (17:00)
--- NOTE | 2018-10-13 18:10 | PTCA ---
PERCUTANEOUSTRANS CORORONARY ANGIOGRAPHY DATE OF SERVICE: October 13, 2018 PERFORMING PHYSICIAN: Rigoberto Aj MD, senior php developer. PROCEDURE PERFORMED: Successful stenting of the proximal LAD using 3.0 x 18 mm Xience drug-eluting stent, which was postdilated using 3.25 mm NC balloon with an excellent angiographic results and reduction of stenosis from 99% to 0%. INDICATION: This is a pleasant 63-year-old gentleman who has known history of coronary artery disease as well as hypertension and dyslipidemia who sees Dr. Pierre in the office as an outpatient who recently was experiencing chest discomfort and underwent heart catheterization which revealed triple-vessel coronary artery disease. He was recommended to undergo coronary artery bypass grafting, but the patient refused to have surgery. Because of that, he was brought today to undergo a PCI of the LAD. APPROACH: Right common femoral artery. COMPLICATION: None. LEVEL OF SEDATION: Moderate with sedation length of 30 minutes. PROCEDURE DESCRIPTION: After obtaining an informed consent, the patient was brought to cardiac laboratory technologist. The right common femoral artery was cannulated using micropuncture technique and a micropuncture wire passed easily. Then I placed a 6-Ind[place] sheath in the right common femoral artery. After that, I did start anticoagulation using Angiomax. After that, I did engage the left main using XB 3 5 LAD guide. A whisper wire was used to wire the LAD and wire was positioned in the distal LAD. After that, I did balloon angioplasty using 2.5 x 12 x 15 mm balloon before I deployed 3.0 x 12 x 18 mm Xience drug-eluting stent where the stent was positioned under fluoroscopy guidance and deployed under 18 atmospheres for 20 seconds. After that I post dilated the stent using 3.25 mm NC balloon. The following angiogram showed excellent angiographic results and the procedure was completed without any complication. POSTPROCEDURE MANAGEMENT: 1. Dual anti-platelet therapy. 2. PCI of the left circumflex, OM 1 bifurcation using the Triton bifurcation stent in a few weeks. MMODL / IJN: [id number] /
[2018-10-14 06:04] LABS: Basophils % (A) 1 %; Eosinophils # (A) 0.3 k/uL (0-0.7); Eosinophils % (A) 3 %; HCT 43.1 % (39.0-53.0); HGB 13.5 gm/dL (13.0-17.5); Lymphocytes # (A) 1.9 k/uL (1.0-4.8); Lymphocytes % (A) 19 %; MCH 28.2 pg (25.0-35.0); MCHC 31.4 g/dL (31.0-37.0); MCV 89.9 fL (80.0-100.0); Mean Platelet Volume 5.9; Monocytes # (A) 0.5 k/uL (0-1.0); Monocytes % (A) 6 %; Neutrophils % (A) 71 %; Platelet Count 225 k/uL (150-450); RBC 4.79 m/uL (4.30-5.90); WBC 9.9 k/uL (3.8-10.6)
[2018-10-14 06:13] LABS: Potassium 4.6 mmol/L (3.5-5.1)
[2018-10-14 06:14] LABS: Anion Gap 5 mmol/L; Blood Urea Nitrogen 17 mg/dL (9-20); Calcium 8.8 mg/dL (8.4-10.2); Carbon Dioxide 25 mmol/L (22-30); Chloride 110 mmol/L (98-107); Glucose 97 mg/dL (74-99); Sodium 140 mmol/L (137-145)
[2018-10-14 08:05] VITALS: BP 169/85; PULSE 83; RESP 20; TEMP 96.3
[2018-10-14] MEDS ORDERED: CLOPIDOGREL 75 MG TAB PO SCH (09:00)
[2018-10-14] MEDS ORDERED: ASPIRIN 81 MG PO SCH (09:00)
[2018-10-14] MEDS ORDERED: METOPROLOL SUCCINATE (ER) 50 MG TAB.ER.24H PO SCH (09:00)
[2018-10-14] MEDS ORDERED: ISOSORBIDE MONONITRATE ER 30 MG TAB.ER.24H PO SCH (09:00)
--- NOTE | 2018-10-14 09:02 | DS ---
DISCHARGE SUMMARY ADMISSION DATE: 10/13/2018. DISCHARGE DATE: 10/14/2018 BRIEF HISTORY: This is a pleasant 63-year-old gentleman who sees Dr. Pierre in the office as an outpatient who was admitted yesterday and underwent successful stenting of the proximal LAD with good angiographic results and without any complication. The right groin is soft and nontender and without any bruises. The patient is chest pain free. He is going to be discharged home on dual anti-platelet therapy. He is going to follow up with Dr. Pierre in a week for PCI of the left circumflex to be done in the next few weeks. MMODL / IJN: [id number] /
[2018-10-14] MEDS ORDERED: ATORVASTATIN 40 MG TAB PO SCH (21:00)
== END 2018-10-14 08:53 | disposition home or self-care (01) ==
LOC: CATHCVL 13:15 → 3SCARD 16:52 → CATHCVL 10-14 08:53
PROVIDERS: ATTEND Internal Medicine Interventional Cardiology
DX: I25.10 Atherosclerotic heart disease of native coronary artery without angina pectoris (principal); Z87.891 Personal history of nicotine dependence; E78.5 Hyperlipidemia, unspecified; I25.5 Ischemic cardiomyopathy; I35.0 Nonrheumatic aortic (valve) stenosis; Z79.02 Long term (current) use of antithrombotics/antiplatelets; Z79.82 Long term (current) use of aspirin; Z79.899 Other long term (current) drug therapy
CPT/HCPCS: 80048 ×2; 85025 ×2; C9600; C1760; C1769 ×3; C1725 ×2; C1887; C1894; C1874; J2250; J2001; J3010; J0583; Q9967

== ENCOUNTER 2018-10-27 11:13 | Day surgery (SDC) | payer OTHER ==
[2018-10-25 16:19] VITALS: BMI 38.0
[2018-10-27] MEDS ORDERED: LIDOCAINE 1% INJ 10MG/ML (20 ML MDV) ONE (14:04)
[2018-10-27] MEDS ORDERED: MIDAZOLAM 2 MG/2 ML VIAL IVP ONE ×2 (14:12→14:45)
[2018-10-27] MEDS ORDERED: LIDOCAINE 1% INJ 10MG/ML (20 ML MDV) SQ ONE (14:14)
[2018-10-27] MEDS ORDERED: fentaNYL (PF) 50 MCG/ML 2 ML AMP ONE (14:17)
[2018-10-27] MEDS ORDERED: fentaNYL (PF) 50 MCG/ML 2 ML AMP IVP ONE (14:19)
[2018-10-27] MEDS ORDERED: BIVALIRUDIN BOLUS 250 MG/50 ML IV ONE (14:30)
[2018-10-27] MEDS ORDERED: BIVALIRUDIN 250 MG in SODIUM CHLORIDE 0.9% 50 ML IV ONE ×2 (14:30→14:57)
[2018-10-27] MEDS ORDERED: CLOPIDOGREL 75 MG TAB ONE ×2 (14:52)
[2018-10-27] MEDS ORDERED: CLOPIDOGREL 75 MG TAB PO ONE (14:56)
[2018-10-27] MEDS ORDERED: IOPAMIDOL-370 125ML BTL INJ ONE (15:10)
[2018-10-27] MEDS ORDERED: NITROGLYCERIN 1000MCG/10ML SYRINGE INTRACORON ONE (15:44)
[2018-10-27] MEDS ORDERED: IOPAMIDOL-300 50ML BTL INJ ONE (15:47)
[2018-10-27] MEDS ORDERED: NITROGLYCERIN SL TABS 0.4 MG TAB SUBLINGUAL PRN ×2 (15:53→15:54)
[2018-10-27] MEDS ORDERED: ATROPINE SULFATE 0.1 MG/ML 10ML SYRINGE IV PRN (15:54)
[2018-10-27] MEDS ORDERED: MAG HYDROX/AL HYDROX/SIMETH 30 ML CUP PO PRN (15:54)
[2018-10-27] MEDS ORDERED: ZOLPIDEM 5 MG TAB PO PRN (15:54)
[2018-10-27] MEDS ORDERED: RX INFO: IV CONTRAST WAS GIVEN 1 EACH MISC MISCELLANE PRN (15:54)
[2018-10-27] MEDS ORDERED: SODIUM CHLORIDE 0.9% 1,000 ML IV SCH (16:00)
--- NOTE | 2018-10-27 18:13 | PTCA ---
PERCUTANEOUSTRANS CORORONARY ANGIOGRAPHY DATE OF SERVICE: 10/27/2018 PERFORMING PHYSICIAN: Rigoberto Aj MD, downstream biomanufacturing technician. PROCEDURE PERFORMED: Successful kissing stents of first obtuse marginal branch as well as left circumflex using Tryton 3.5/4.0 x 15 mm stent for the first obtuse marginal branch and 3.25 x 23 mm Xience Rani for the true left circumflex with an excellent angiographic result and reduction of stenosis from 80% to 0%. INDICATION: This is a pleasant 63-year-old gentleman who was diagnosed with severe 2-vessel coronary artery disease involving the LAD and left circumflex and underwent stenting of the LAD and came in today to undergo stenting of left circumflex. APPROACH: Right common femoral artery. COMPLICATIONS: None. LEVEL OF SEDATION: Moderate, with sedation length of 94 minutes. PROCEDURE DESCRIPTION: After obtaining informed consent, the patient was brought to the cardiac track repair laborer. The right common femoral artery was cannulated using micropuncture technique. The micropuncture wire passed easily. Then I placed a 6-Omani sheath in the right common femoral artery. At that point, anticoagulation was initiated using Angiomax. Subsequently I engaged the left main using an XP35 guide. The true circumflex was wired using a short run- through wire. First obtuse marginal branch was wired using a long run-through wire. After that I did balloon angioplasty of both the left circumflex and OM1 using a 3.0 mm balloon. After that I placed the Tryton 3.5/4.0 x 15 mm stent in the first obtuse marginal branch, where the stent was positioned under fluoroscopy guidance and deployed under 14 atmospheres for 20 seconds. At that point I did post-dilate the proximal portion of the stent using an 3.75 x 10 mm NC balloon which was inflated under 18 atmospheres for 20 seconds. At that point, I pulled the wire from the first obtuse marginal branch and redirected my wire into the true left circumflex coronary artery. After that I deployed in the true left circumflex coronary artery a 3.25 x 23 mm Xience drug-eluting stent, where the stent again was positioned under fluoroscopy guidance and deployed under its nominal pressure. After that, I re-ballooned the proximal portion of the stent using a 4.0 mm NC balloon where the balloon was inflated under 18 atmospheres for 20 seconds. After that I pulled the jailed wire from the true left circumflex coronary artery and I re-wired again OM1. Then I finally did kissing balloon for both OM1 and left circumflex using a 3.0 mm NC balloon for true left circumflex and 3.0 mm for the OM1. Both balloons were inflated simultaneously under 16 atmospheres for 20 seconds with the following angiogram showing excellent angiographic results. The procedure was completed without any complication. POST-PROCEDURE MANAGEMENT: 1. Dual anti-platelet therapy. 2. Risk factor modifications. 3. Follow up with the patient. ISAEBLLA / IJN: [id number] /
[2018-10-28 05:50] VITALS: RESP 16
[2018-10-28 07:23] LABS: Basophils % (A) 0 %; Eosinophils # (A) 0.3 k/uL (0-0.7); Eosinophils % (A) 3 %; HCT 43.8 % (39.0-53.0); Lymphocytes # (A) 1.9 k/uL (1.0-4.8); Lymphocytes % (A) 21 %; MCH 29.2 pg (25.0-35.0); MCHC 31.9 g/dL (31.0-37.0); MCV 91.7 fL (80.0-100.0); Mean Platelet Volume 6.1; Monocytes # (A) 0.5 k/uL (0-1.0); Monocytes % (A) 5 %; Neutrophils # (A) 6.2 k/uL (1.3-7.7); Neutrophils % (A) 69 %; Platelet Count 268 k/uL (150-450); RBC 4.78 m/uL (4.30-5.90); RDW 14.1 % (11.5-15.5)
[2018-10-28 07:43] LABS: Anion Gap 6 mmol/L; Blood Urea Nitrogen 18 mg/dL (9-20); Carbon Dioxide 23 mmol/L (22-30); Chloride 111 mmol/L (98-107); Glucose 102 mg/dL (74-99); Sodium 140 mmol/L (137-145)
[2018-10-28 07:58] VITALS: BP 135/87; PULSE 68; TEMP 98
[2018-10-28 08:01] LABS: Potassium 4.6 mmol/L (3.5-5.1)
[2018-10-28] MEDS ORDERED: METOPROLOL SUCCINATE (ER) 50 MG TAB.ER.24H PO SCH (09:00)
[2018-10-28] MEDS ORDERED: CLOPIDOGREL 75 MG TAB PO SCH (09:00)
[2018-10-28] MEDS ORDERED: ISOSORBIDE MONONITRATE ER 30 MG TAB.ER.24H PO SCH (09:00)
[2018-10-28] MEDS ORDERED: ASPIRIN 81 MG PO SCH (09:00)
--- NOTE | 2018-10-28 12:46 | P.PN ---
Subjective Progress Note Date: 10/28/18 Discharge note This is a pleasant 63-year-old gentleman who was diagnosed with severe two-vessel coronary artery disease involving the LAD and circumflex, he previously underwent stenting of the LAD and came in yesterday to undergo stent placement of the circumflex. Patient was seen and examined this morning, feels well, denies any chest pain or difficulty in breathing. He's been up ambulating without any difficulty. EKG shows normal sinus rhythm with no changes post-PCI. Blood pressure 135/80 with a heart rate in the 60s, 92% on room air. White blood cell count 9.0, hemoglobin 14, platelet count 268. Sodium 140, potassium 4.6, BUN 18 and creatinine 0.9. Objective - Vital Signs Vital signs: Vital Signs Temp 98.0 F 10/28/18 07:56 Pulse 68 10/28/18 07:58 Resp 16 10/28/18 07:58 BP 135/87 10/28/18 07:56 Pulse Ox 92 L 10/28/18 07:56 Intake & Output 10/27/18 10/28/18 10/28/18 18:59 06:59 18:59 Intake Total 840 400 360 Balance 840 400 360 Weight 115 kg Intake: IV 640 400 Invasive Line 1 20 Sodium Chloride 0.9% 1, 100 400 000 ml @ 100 mls/hr IV . Q10H DERICK Rx#:[id number] Oral 200 360 Other: Voiding Method Urinal Urinal # Voids 2 - Exam PHYSICAL EXAMINATION: GENERAL: 63-year-old gentleman in no acute distress at the time of my examination HEENT: Head is atraumatic, normocephalic. Pupils equal, round. Sclera anicteric. Conjunctiva are clear. Mucous membranes of the mouth are moist. Neck is supple. There is no elevated jugular venous pressure. No carotid bruit is heard. HEART EXAMINATION: Heart S1, S2 normal. No murmur or gallop heard. CHEST EXAMINATION: Lungs are clear to auscultation and precussion. No chest wall tenderness is noted on palpation or with deep breathing. ABDOMEN: Soft, nontender. Bowel sounds are heard. No organomegaly noted. EXTREMITIES: 2+ peripheral pulses with no evidence of peripheral edema and no calf tenderness noted. Right groin soft, no evidence of any hematoma. NEUROLOGIC patient is awake, alert and oriented 3 . . - Labs CBC & Chem 7: 10/28/18 06:34 10/28/18 06:34 Labs: Abnormal Lab Results - Last 24 Hours (Table) 10/28/18 Range/Units 06:34 Chloride 111 H (98-107) mmol/L Glucose 102 H (74-99) mg/dL Assessment and Plan Plan: Assessment and plan #1 status post angioplasty and stenting of the circumflex #2 recent non-STEMI with angioplasty and stenting of the LAD #3 nicotine dependence #4 hyperlipidemia #5 hypertension Plan Patient may be discharged home today. We'll make him a follow-up appointment to see Dr. Ingram in the office post discharge. The patient will be discharged home on aspirin 81 mg daily, Lipitor 40 mg daily, Plavix 75 mg daily, Imdur 30 mg daily, Toprol-XL 50 mg daily, sublingual nitroglycerin as needed for chest pain. DNP note has been reviewed, I agree with a documented findings and plan of care. Patient was seen and examined.
[2018-10-28] MEDS ORDERED: ATORVASTATIN 40 MG TAB PO SCH (21:00)
== END 2018-10-28 09:26 | disposition home or self-care (01) ==
LOC: CATHCVL 11:13 → 3SCARD 15:46 → CATHCVL 10-28 09:26
PROVIDERS: ATTEND Internal Medicine Interventional Cardiology
DX: I25.10 Atherosclerotic heart disease of native coronary artery without angina pectoris (principal); Z95.5 Presence of coronary angioplasty implant and graft; I35.0 Nonrheumatic aortic (valve) stenosis; I25.5 Ischemic cardiomyopathy; E78.49 Other hyperlipidemia; Z87.891 Personal history of nicotine dependence; Z79.02 Long term (current) use of antithrombotics/antiplatelets; Z79.82 Long term (current) use of aspirin; Z79.899 Other long term (current) drug therapy
CPT/HCPCS: 92929; 80048; 85025; C9600; C1769 ×5; C1725 ×5; C1887; C1894; C1874; C1876; J2250; J2001; J3010; J0583; Q9967 ×2

== ENCOUNTER 2019-03-29 12:06 | Emergency (ER) | payer OTHER ==
[2019-03-29] MEDS ORDERED: SODIUM CHLORIDE 0.9% 500 ML 500 ML IV STA (13:09)
[2019-03-29] MEDS ORDERED: KETOROLAC 30 MG/ML 1 ML VIAL IVP STA (13:09)
[2019-03-29 13:25] LABS: Basophils % (A) 0 %; Eosinophils # (A) 0.1 k/uL (0-0.7); Eosinophils % (A) 0 %; HCT 48.3 % (39.0-53.0); HGB 15.5 gm/dL (13.0-17.5); Lymphocytes # (A) 3.1 k/uL (1.0-4.8); Lymphocytes % (A) 21 %; MCH 28.3 pg (25.0-35.0); MCHC 32.1 g/dL (31.0-37.0); MCV 88.2 fL (80.0-100.0); Mean Platelet Volume 6.3; Monocytes # (A) 0.9 k/uL (0-1.0); Monocytes % (A) 6 %; Neutrophils # (A) 10.6 k/uL (1.3-7.7); Neutrophils % (A) 71 %; Platelet Count 314 k/uL (150-450); RBC 5.47 m/uL (4.30-5.90); RDW 14.6 % (11.5-15.5)
[2019-03-29 13:28] VITALS: RESP 16
[2019-03-29 13:35] LABS: Albumin 4.4 g/dL (3.5-5.0); Calcium 9.7 mg/dL (8.4-10.2); Potassium 3.9 mmol/L (3.5-5.1); Total Bilirubin 0.5 mg/dL (0.2-1.3); Total Protein 7.6 g/dL (6.3-8.2)
[2019-03-29 13:43] LABS: Appearance,Urine Clear (Clear); Bilirubin,Urine Negative (Negative); Blood,Urine Negative (Negative); Color,Urine Yellow; Glucose,Urine (UA) Negative (Negative); Ketones,Urine Negative (Negative); Leukocyte Esterase,Urine Negative (Negative); Nitrite,Urine Negative (Negative); Protein,Urine Trace (Negative); Specific Gravity,Urine 1.027 (1.001-1.035); Urobilinogen,Urine <2.0 mg/dL (<2.0)
--- NOTE | 2019-03-29 14:55 | ED ---
General Adult HPI - General Chief complaint: Abdominal Pain Stated complaint: poss kidney stone Time Seen by Provider: 03/29/19 12:36 Source: patient, RN notes reviewed Mode of arrival: ambulatory - History of Present Illness Initial comments: 64-year-old male with past medical history of hyperlipidemia, hypertension, [place], CAD presents to the emergency department for chief complaint of left flank pain. Patient states that he has had this pain for about 5 days. States it is a bsolutely fine when he is lying down but worsens with movement. States that it hurts when he walks. States he was seen at [facility] and had a CAT scan done which showed no kidney stone. He acted to follow-up with primary care which she has not yet done because he is busy with work. Denies saddle anesthesia. Denies fevers or chills. Denies weakness in the legs. Denies any midline pain. Denies changes in bladder or bowel function. Patient has no other complaints at this time including shortness of breath, chest pain, abdominal pain, nausea or vomiting, headache, or visual changes.s - Related Data Home Medications Medication Instructions Recorded Confirmed Clopidogrel [Plavix] 75 mg PO DAILY 10/12/18 03/29/19 Isosorbide Mononitrate [Isosorbide 30 mg PO DAILY 10/12/18 03/29/19 Mononitrate ER] Metoprolol Succinate (ER) [Toprol 50 mg PO QAM 10/12/18 03/29/19 XL] Albuterol Inhaler [Ventolin Hfa 2 puff INHALATION RT-Q6H PRN 03/29/19 03/29/19 Inhaler] Ibuprofen [Motrin] 600 mg PO BID PRN 03/29/19 03/29/19 Previous Rx's Medication Instructions Recorded Aspirin EC [Ecotrin Low Dose] 81 mg PO DAILY #30 tablet. 10/02/18 Atorvastatin [Lipitor] 40 mg PO HS #30 tab 10/02/18 Nitroglycerin Sl Tabs [Nitrostat] 0.4 mg SUBLINGUAL Q5M PRN #10 tab 10/02/18 Allergies Allergy/AdvReac Type Severity Reaction Status Date / Time No Known Allergies Allergy Verified 03/29/19 12:36 Review of Systems ROS Statement: Those systems with pertinent positive or pertinent negative responses have been documented in the HPI. ROS Other: All systems not noted in ROS Statement are negative. Past Medical History Past Medical History: Coronary Artery Disease (CAD), Chest Pain / Angina, Hyperlipidemia, Hypertension, Myocardial Infarction ([place]) Additional Past Medical History / Comment(s): Recent hospitalization-had cardiac cath. & eval. for "open heart" per pt.,past kidney stones, umbilical hernia, obesity Last Myocardial Infarction Date:: 09/30/2018 History of Any Multi-Drug Resistant Organisms: None Reported Past Surgical History: Heart Catheterization, Heart Catheterization With Stent Additional Past Surgical History / Comment(s): "3 heart caths, 4 stents," 1996, 2002 X2, 2013. PTCA W/ STENT 10/13/18. Past Anesthesia/Blood Transfusion Reactions: No Reported Reaction Additional Past Anesthesia/Blood Transfusion Reaction / Comment(s): has never had any blood transfusions Date of Last Stent Placement:: 10/13/18 Past Psychological History: No Psychological Hx Reported Smoking Status: Former smoker Past Alcohol Use History: None Reported Past Drug Use History: None Reported - Past Family History Father Family Medical History: Congestive Heart Failure (CHF), Coronary Artery Disease (CAD) Additional Family Medical History / Comment(s): Father at age 79. Mother Family Medical History: Cancer Additional Family Medical History / Comment(s): Mother at age 58, leukemia Brother(s) Additional Family Medical History / Comment(s): One of his 3 brothers at the age of 54 from an aneurysm. His oldest brother recently had a cardiac stent placed at age 67. General Exam General appearance: alert, in no apparent distress Head exam: Present: atraumatic, normocephalic, normal inspection Eye exam: Present: normal appearance, PERRL, EOMI. Absent: scleral icterus, conjunctival injection, periorbital swelling ENT exam: Present: normal exam, mucous membranes moist Neck exam: Present: normal inspection, full ROM. Absent: tenderness, meningismus, lymphadenopathy Respiratory exam: Present: normal lung sounds bilaterally. Absent: respiratory distress, wheezes, rales, rhonchi, stridor Cardiovascular Exam: Present: regular rate, normal rhythm, normal heart sounds. Absent: systolic murmur, diastolic murmur, rubs, gallop, clicks GI/Abdominal exam: Present: soft, normal bowel sounds. Absent: distended, tenderness, guarding, rebound, rigid Back exam: Present: other (Minimal tenderness noted to the left lateral back). Absent: CVA tenderness (R), CVA tenderness (L) Neurological exam: Present: alert, oriented X3, CN II-XII intact Psychiatric exam: Present: normal affect, normal mood Course Vital Signs 03/29/19 03/29/19 12:12 13:17 Temperature 98.2 F Pulse Rate 102 H Respiratory 18 16 Rate Blood Pressure 133/92 O2 Sat by Pulse 95 Oximetry Medical Decision Making - Medical Decision Making 64-year-old male presents to the emergency determine for chief complaint of left side pain. This has been ongoing for about 5 days. States pain is at a 0 when he is lying down but with walking and movement the left side hurts. Denies any abdominal pain denies any chest pain or shortness of breath. CBC that showed a white count of 15, patient recently started on steroids for COPD. CMP unremarkable. Urine is negative. Patient given Toradol in the emergency department with didn't help. I did get report from the [facility] approximately 2-1/2 hours after patient arrives. CT showed no evidence of hydronephrosis nor nephrolithiasis and very mild fat stranding surrounding the gastric fundus that could be artifactual. Fat filled ventral hernia. Patient had a cough that time which she states is much better. After receiving this report I saw the patient recommended a KUB x-ray and then possibly a CAT scan of there are any abnormal findings. However patient states he wants to leave. States his girlfriend needs him to pick her up. Patient aware that he is leaving AGAINST MEDICAL ADVICE as I want him to have more imaging. Patient was still given instructions to return here as well as some pain medication over the next few days. Recommended strict return parameters and follow-up. - Lab Data Result diagrams: 03/29/19 12:40 03/29/19 12:40 Lab Results 03/29/19 03/29/19 03/29/19 Range/Units 12:40 12:40 13:20 WBC 15.0 H (3.8-10.6) k/uL RBC 5.47 (4.30-5.90) m/uL Hgb 15.5 (13.0-17.5) gm/dL Hct 48.3 (39.0-53.0) % MCV 88.2 (80.0-100.0) fL MCH 28.3 (25.0-35.0) pg MCHC 32.1 (31.0-37.0) g/dL RDW 14.6 (11.5-15.5) % Plt Count 314 (150-450) k/uL Neutrophils % 71 % Lymphocytes % 21 % Monocytes % 6 % Eosinophils % 0 % Basophils % 0 % Neutrophils # 10.6 H (1.3-7.7) k/uL Lymphocytes # 3.1 (1.0-4.8) k/uL Monocytes # 0.9 (0-1.0) k/uL Eosinophils # 0.1 (0-0.7) k/uL Basophils # 0.0 (0-0.2) k/uL Sodium 140 (137-145) mmol/L Potassium 3.9 (3.5-5.1) mmol/L Chloride 101 (98-107) mmol/L Carbon Dioxide 27 (22-30) mmol/L Anion Gap 12 mmol/L BUN 24 H (9-20) mg/dL Creatinine 1.10 (0.66-1.25) mg/dL Est GFR (CKD-EPI)AfAm 83 (>60 ml/min/1.73 sqM) Est GFR (CKD-EPI)NonAf 72 (>60 ml/min/1.73 sqM) Glucose 108 H (74-99) mg/dL Calcium 9.7 (8.4-10.2) mg/dL Total Bilirubin 0.5 (0.2-1.3) mg/dL AST 17 (17-59) U/L ALT 16 L (21-72) U/L Alkaline Phosphatase 79 (38-126) U/L Total Protein 7.6 (6.3-8.2) g/dL Albumin 4.4 (3.5-5.0) g/dL Amylase 53 (30-110) U/L Lipase 66 (23-300) U/L Urine Color Yellow Urine Appearance Clear (Clear) Urine pH 6.0 (5.0-8.0) Ur Specific Spring 1.027 (1.001-1.035) Urine Protein Trace H (Negative) Urine Glucose (UA) Negative (Negative) Urine Ketones Negative (Negative) Urine Blood Negative (Negative) Urine Nitrite Negative (Negative) Urine Bilirubin Negative (Negative) Urine Urobilinogen <2.0 (<2.0) mg/dL Ur Leukocyte Esterase Negative (Negative) Disposition Clinical Impression: Back pain Disposition: Left Against Medical Advice Condition: Fair Instructions (If sedation given, give patient instructions): Back Pain (ED) Additional Instructions: Please follow up with primary care in 1-2 days. Return to the emergency department if you have any worsening symptoms, difficulty walking, or any other concerns. Is patient prescribed a controlled substance at d/c from ED?: No Referrals: Leeanna Guevara MD [REFERRING] - 1-2 days Time of Disposition: 15:19
[2019-03-29] MEDS ORDERED: ACET/COD 300 MG/30 MG STARTER PACK 6 TAB BTL PO STA (15:20)
[2019-03-29 15:25] VITALS: BP 154/86; PULSE 82; TEMP 97.3
== END 2019-03-29 15:25 | disposition left against medical advice (07) ==
LOC: EC 12:06
DX: M54.9 Dorsalgia, unspecified (principal); R10.9 Unspecified abdominal pain; K43.9 Ventral hernia without obstruction or gangrene; I25.119 Atherosclerotic heart disease of native coronary artery with unspecified angina pectoris; I10 Essential (primary) hypertension; I25.2 Old myocardial infarction; Z87.891 Personal history of nicotine dependence; Z79.01 Long term (current) use of anticoagulants; Z79.899 Other long term (current) drug therapy; Z95.5 Presence of coronary angioplasty implant and graft; Z53.29 Procedure and treatment not carried out because of patient's decision for other reasons
CPT/HCPCS: 36415; 80053; 82150; 83690; 85025; 81003; 99284; 96374; 96361; J1885

== ENCOUNTER 2019-08-24 17:22 | Emergency (ER) | payer OTHER ==
[2019-08-24 17:27] VITALS: PULSE 90; TEMP 98.1
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
--- NOTE | 2019-08-24 18:12 | XR ---
EXAMINATION TYPE: XR tibia fibula LT DATE OF EXAM: 08/24/2019 COMPARISON: NONE HISTORY: Pain TECHNIQUE: 3 views FINDINGS: Tibia and fibula appear intact. I see no fracture nor dislocation. There is no sign of join t effusion at the knee. There is a plantar calcaneal spur. IMPRESSION: Calcaneal spurring. No fracture seen.
[2019-08-24 18:27] VITALS: RESP 20
[2019-08-24 18:35] VITALS: BP 141/82
== END 2019-08-24 18:25 | disposition home or self-care (01) ==
LOC: EC 17:22
DX: M79.662 Pain in left lower leg (principal); M77.32 Calcaneal spur, left foot; I25.119 Atherosclerotic heart disease of native coronary artery with unspecified angina pectoris; I10 Essential (primary) hypertension; I25.2 Old myocardial infarction; F17.200 Nicotine dependence, unspecified, uncomplicated; Z79.02 Long term (current) use of antithrombotics/antiplatelets; Z79.899 Other long term (current) drug therapy; Z95.5 Presence of coronary angioplasty implant and graft; V43.52XA Car driver injured in collision with other type car in traffic accident, initial encounter; Y92.410 Unspecified street and highway as the place of occurrence of the external cause
CPT/HCPCS: 99284

== ENCOUNTER → 2019-10-10 | Outpatient (CLI) | payer OTHER ==
[2019-10-10 17:59] LABS: African American GFR (CKD) 93.1 (60.0-200.0); Albumin 4.3 g/dL (3.80-4.90); Albumin/Globulin Ratio 2.05 (1.60-3.17); Anion Gap 7.4 mmol/L (4.00-12.00); Calcium 9.2 mg/dL (8.7-10.3); Carbon Dioxide 25.6 mmol/L (21.6-31.8); Chol/HDL Ratio 4.05; Globulin 2.1 g/dL (1.6-3.3); LDL Cholesterol,Calculated 98.4 mg/dL (0.0-131.0); Non-African American GFR(CKD) 80.3 (60.0-200.0); Potassium 4.6 mmol/L (3.5-5.5); Total Bilirubin 0.5 mg/dL (0.2-1.2); Total Protein 6.4 g/dL (6.2-8.2); VLDL Calculation 26.6 mg/dL (5.00-40.00)
== END | disposition home or self-care (01) ==
LOC: LABWHC1 10:04
PROVIDERS: ATTEND Internal Medicine Clinical Cardiac Electrophysiology
DX: I25.10 Atherosclerotic heart disease of native coronary artery without angina pectoris (principal); E78.5 Hyperlipidemia, unspecified; I25.5 Ischemic cardiomyopathy
CPT/HCPCS: 36415; 80053; 80061; 84443

== ENCOUNTER → 2019-11-12 | Outpatient (CLI) | payer OTHER ==
[2019-11-12 17:20] LABS: African American GFR (CKD) 82.9 (60.0-200.0); Anion Gap 5.8 mmol/L (4.00-12.00); BUN/Creat Ratio 17.27 Ratio (12.00-20.00); Calcium 9.2 mg/dL (8.7-10.3); Carbon Dioxide 27.2 mmol/L (21.6-31.8); Non-African American GFR(CKD) 71.6 (60.0-200.0); Potassium 5.5 mmol/L (3.5-5.5)
== END | disposition home or self-care (01) ==
LOC: LABWHC1 10:09
PROVIDERS: ATTEND Physician Assistant
DX: I42.9 Cardiomyopathy, unspecified (principal)
CPT/HCPCS: 36415; 80048

== ENCOUNTER → 2020-07-23 | Outpatient (CLI) | payer OTHER ==
[2020-07-23 19:20] LABS: African American GFR (CKD) 82.4 (60.0-200.0); Anion Gap 6.8 mmol/L (4.00-12.00); BUN/Creat Ratio 19.09 Ratio (12.00-20.00); Calcium 9.3 mg/dL (8.7-10.3); Carbon Dioxide 26.2 mmol/L (21.6-31.8); Chol/HDL Ratio 2.93; LDL Cholesterol,Calculated 72.4 mg/dL (0.0-131.0); Non-African American GFR(CKD) 71.1 (60.0-200.0); Potassium 5.4 mmol/L (3.5-5.5); VLDL Calculation 12.6 mg/dL (5.00-40.00)
== END | disposition home or self-care (01) ==
LOC: LABWHC1 10:32
PROVIDERS: ATTEND Physician Assistant
DX: I10 Essential (primary) hypertension (principal); E78.5 Hyperlipidemia, unspecified
CPT/HCPCS: 36415; 80048; 80061

== ENCOUNTER → 2020-10-22 | Outpatient (CLI) | payer OTHER | END | disposition home or self-care (01) | LOC: LABWHC1 14:20 | PROVIDERS: ATTEND Surgery | DX: Z20.822 Contact with and (suspected) exposure to COVID-19 (principal) | CPT/HCPCS: U0003; C9803; U0005 ==

== ENCOUNTER → 2020-10-26 | Outpatient (CLI) | payer OTHER ==
[2020-10-26 16:26] LABS: HCT 48.4 % (39.0-53.0); HGB 15.9 gm/dL (13.0-17.5); MCH 30.3 pg (25.0-35.0); MCHC 32.9 g/dL (31.0-37.0); MCV 92.1 fL (80.0-100.0); Mean Platelet Volume 6.4; Platelet Count 234 k/uL (150-450); RBC 5.26 m/uL (4.30-5.90); RDW 13.5 % (11.5-15.5)
== END | disposition home or self-care (01) ==
LOC: LABPAT 15:30
PROVIDERS: ATTEND Surgery
DX: Z01.818 Encounter for other preprocedural examination (principal)
CPT/HCPCS: 36415; 84132; 85027; 86850; 86900; 86901

== ENCOUNTER 2020-10-30 10:55 | Day surgery (SDC) | payer OTHER ==
[2020-10-26 15:11] VITALS: BMI 37.2
[~2020-10-30 10:55] MED LIST changes: -ALPRAZolam 0.25 MG TAB PO PRN; -ALPRAZolam 0.5 MG TAB PO PRN; -ASPIRIN 325 MG TAB PO STA; -ATORVASTATIN 80 MG TAB PO STA; +DEXAMETHASONE SOD PHOSPHATE 4 MG/ML 1 ML VIAL IV ONE; +HEPARIN SODIUM,PORCINE 5,000 UNIT/ML 1 ML VIAL SQ PRN; +LACTATED RINGERS 1,000 ML IV SCH; -NITROGLYCERIN SL TABS 0.4 MG TAB SUBLINGUAL PRN; +ONDANSETRON 4 MG/2 ML VIAL IVP ONE; -SODIUM CHLORIDE 0.9% 1,000 ML in EMPTY BAG 1 BAG IV ONE
[2020-10-30] MEDS ORDERED: MIDAZOLAM 2 MG/2 ML VIAL IVP ONE (12:31)
[2020-10-30] MEDS ORDERED: fentaNYL (PF) 50 MCG/ML 2 ML AMP IVP ONE (12:31)
--- NOTE | 2020-10-30 12:59 | P.ANPRN ---
Procedure Note - Anesthesia - Nerve Block Performed Bilateral Rectus Abdominis Single Time Out Performed: Yes (1224) Date of Procedure: 10/30/20 Procedure Start Time: 12:31 Procedure Stop Time: 12:37 Location of Patient: PreOp Indication: Acute Post-Operative Pain, Requested by Surgeon Specifically requested for management of pain by : Clover [place] Sedation Type: Sedate with meaningful contact maintained Preparation: Sterile Prep Position: Supine Catheter: None Needle Types: Pajunk Needle Gauge: 21 Ultrasound used to visualize needle placement: Yes Ultrasound used to observe medication spread: Yes Injectate: 0.5% Ropivacaine (see comment for volume) (20cc eaCH SIDE) Blood Aspirated: No Pain Paresthesia on Injection Noted: No Resistance on Injection: Normal Image Stored and Saved: Yes Events: Uneventful and Well Tolerated
[2020-10-30] MEDS ORDERED: ALBUTEROL INHALER 60 PUFF/8 GM INHALER (MHU) INHALATION ONE (13:38)
[2020-10-30] MEDS ORDERED: KETOROLAC 15 MG/ML 1 ML VIAL ONE (13:38)
[2020-10-30] MEDS ORDERED: NEOSTIGMINE 1 MG/ML 10 ML VIAL ONE (13:38)
[2020-10-30] MEDS ORDERED: LIDOCAINE 1% INJ 10MG/ML (20 ML MDV) ONE (13:38)
[2020-10-30] MEDS ORDERED: ROPIVACAINE 5 MG/ML 30 ML VIAL ONE (13:38)
[2020-10-30] MEDS ORDERED: MIDAZOLAM 2 MG/2 ML VIAL ONE (13:38)
[2020-10-30] MEDS ORDERED: GLYCOPYRROLATE 0.2 MG/ML 2 ML VIAL ONE (13:38)
[2020-10-30] MEDS ORDERED: ETOMIDATE 2 MG/ML 10 ML VIAL ONE (13:38)
[2020-10-30] MEDS ORDERED: SUCCINYLCHOLINE CHLORIDE 100 MG/5 ML SYR IV ONE (13:38)
[2020-10-30] MEDS ORDERED: hydrALAZINE HCL 20 MG/ML 1 ML VIAL ONE (13:38)
[2020-10-30] MEDS ORDERED: fentaNYL (PF) 50 MCG/ML 2 ML AMP ONE (13:38)
[2020-10-30] MEDS ORDERED: ROCURONIUM 10 MG/ML (10 ML VIAL) IV ONE (13:38)
[2020-10-30] MEDS ORDERED: LIDOCAINE 1%-EPI 1:100,000 20 ML VIAL SQ ONE (14:19)
[2020-10-30] MEDS ORDERED: LACTATED RINGERS 1,000 ML IV ONE (15:06)
--- NOTE | 2020-10-30 15:07 | P.OP ---
Date of Procedure: 10/30/20 Preoperative Diagnosis: Incarcerated umbilical hernia Postoperative Diagnosis: Incarcerated umbilical hernia Procedure(s) Performed: Robotic umbilical hernia repair with mesh Anesthesia: LAVINIA Surgeon: Clover Houston Pathology: none sent Condition: stable Disposition: same day Indications for Procedure: 65-year-old male presented to the surgical clinic with complaints of umbilical hernia. On exam, he was noted to have an incarcerated umbilical hernia. Cardiology did provide clearance. The requested repair. Risks, benefits and alternatives to the procedure were provided to the patient. He did provide consent prior to attending the operating suite. Operative Findings: Umbilical hernia incarcerated with omentum Description of Procedure: The patient was brought to the operating suite and placed in supine position on the operating table. Gen. anesthesia with endotracheal intubation was performed as per anesthesia team. The right arm was tucked against the body and footboard was applied. Chlorhexidine was used to prep the skin followed by application of sterile drapes. A timeout was performed to verify correct patient and correct procedure. Patient was confirmed to receive perioperative IV antibiotics, bilateral SCDs and 5000 units of subcutaneous heparin for DVT prophylaxis. A 5 mm skin incision was made along the left midaxillary line and palmers point and the abdomen was entered under direct visualization using a Visiport. Pneumoperitoneum was achieved. The umbilical hernia was clearly visualized and was noted to be incarcerated with omentum. An additional 8 mm trocar was placed in the left lower abdomen and a 12 mm trocar was placed in the left mid abdomen. The initial 5 mm trocar was upsized to an 8 mm trocar. The da Jonas robot was undocked. The 30 robotic camera was used. A robotic prograsp and monopolar scissors were inserted through the 8 mm robotic trochars. The hernia defect contained preperitoneal fat and omentum which were reduced using gentle traction and countertraction method the falciform ligament was divided, using monopolar scissors close to the anterior abdominal wall to create a landing zone for the mesh. A [employer] system 15 cm circular mesh was rolled and introduced to the abdominal cavity via the 12 mm trocar. The hernia defect was closed primarily with a running suture using OV lock by taking 1 cm bite on the fascia on either side of the defect. A Noel Daniel device was inserted through the middle of the hernia defect and the stay suture on the mesh was grasped to elevate the mesh against the anterior abdominal wall. The mesh was circumferentially sutured to the peritoneum of the anterior abdominal wall using 20B LOC without any folds or kinks. The robot was then undocked. Laparoscopic 30 camera was reinserted. All trocar sites were examined. No evidence of bleeding. The 12 mm trocar was closed using 2 transfacial sutures of 0 Vicryl which were placed using a Noel Daniel device. Pneumoperitoneum was evacuated and all skin incisions were closed using 4-0 Monocryl followed by Dermabond skin glue. The sponge, instrument and needle count were correct 2. Abdominal binder was applied. The patient was extubated and taken to [facility] in stable condition.
[2020-10-30] MEDS: HYDROmorphone 0.5 MG/0.5 ML SYRINGE IVP PRN ×2 (15:31→15:47)
[2020-10-30 15:36] VITALS: TEMP 97.8
[2020-10-30] MEDS ORDERED: IPRATROPIUM-ALBUTEROL 3 ML NEB INHALATION STA (15:42)
[2020-10-30 16:41] VITALS: RESP 16
[2020-10-30] MEDS ORDERED: HYDROcodone/APAP 5-325MG 1 EACH TAB ONE (16:58)
[2020-10-30] MEDS ORDERED: HYDROcodone/APAP 5-325MG 1 EACH TAB PO ONE (17:00)
[2020-10-30 17:55] VITALS: BP 122/67; PULSE 62
== END 2020-10-30 18:10 | disposition home or self-care (01) ==
LOC: OR 10:55
PROVIDERS: ATTEND Surgery
DX: K42.0 Umbilical hernia with obstruction, without gangrene (principal); I25.10 Atherosclerotic heart disease of native coronary artery without angina pectoris; I25.2 Old myocardial infarction; I10 Essential (primary) hypertension; E78.5 Hyperlipidemia, unspecified; I25.5 Ischemic cardiomyopathy; Z95.5 Presence of coronary angioplasty implant and graft; Z79.02 Long term (current) use of antithrombotics/antiplatelets; Z79.899 Other long term (current) drug therapy; Z82.49 Family history of ischemic heart disease and other diseases of the circulatory system; Z80.9 Family history of malignant neoplasm, unspecified
CPT/HCPCS: 94640; 64488; 49653; C1781; J2250; J0360; J1644; J1100; J2710; J0690; J2405; J2001; J3010; J2795; J1885; J0330; J1170; 86850; 86900; 86901

== ENCOUNTER 2022-06-29 13:57 | Inpatient (IN) | payer MEDICARE, OTHER ==
[2022-06-29] MEDS ORDERED: AZITHROMYCIN 500 MG in SODIUM CHLORIDE 0.9% 250 ML IVPB STA (14:27)
[2022-06-29] MEDS ORDERED: methylPREDNISolone SOD SUCCI 125 MG/2 ML VIAL IV STA (14:27)
[2022-06-29] MEDS ORDERED: ALBUTEROL NEBULIZED 2.5 MG/3 ML INHALATION STA (14:27)
[2022-06-29] MEDS ORDERED: IPRATROPIUM 0.5 MG/2.5 ML NEBU INHALATION STA (14:27)
[2022-06-29 15:00] LABS: Basophils # (A) 0.1 k/uL (0-0.2); Basophils % (A) 1 %; Eosinophils # (A) 0.2 k/uL (0-0.7); Eosinophils % (A) 2 %; HCT 44.1 % (39.0-53.0); HGB 14.4 gm/dL (13.0-17.5); Lymphocytes # (A) 1.3 k/uL (1.0-4.8); Lymphocytes % (A) 12 %; MCH 30.3 pg (25.0-35.0); MCHC 32.7 g/dL (31.0-37.0); MCV 92.6 fL (80.0-100.0); Mean Platelet Volume 7.6; Monocytes # (A) 0.6 k/uL (0-1.0); Monocytes % (A) 5 %; Neutrophils # (A) 8.6 k/uL (1.3-7.7); Neutrophils % (A) 79 %; Platelet Count 271 k/uL (150-450); RBC 4.76 m/uL (4.30-5.90); RDW 13.5 % (11.5-15.5)
--- NOTE | 2022-06-29 15:14 | ED ---
General Adult HPI - General Chief complaint: Shortness of Breath Stated complaint: SOB Time Seen by Provider: 06/29/22 14:24 Source: patient, RN notes reviewed, old records reviewed Mode of arrival: ambulatory Limitations: no limitations - History of Present Illness Initial comments: 67-year-old male presents for evaluation of increased cough dyspnea. Patient has had symptoms for approximately one week including productive cough, chills with worsening dyspnea. He is a current smoker. He states that he had flulike illness which began about a week ago had an interval period of improvement and then subsequently worsened over the past several days. No Chest pain. No lower extremity pain or swelling. - Related Data Home Medications Medication Instructions Recorded Confirmed Metoprolol Succinate (ER) [Toprol 50 mg PO QAM 10/12/18 10/30/20 XL] Atorvastatin [Lipitor] 80 mg PO HS 10/26/20 10/30/20 Ezetimibe [Zetia] 10 mg PO DAILY 06/29/22 06/29/22 Previous Rx's Medication Instructions Recorded Aspirin EC [Ecotrin Low Dose] 81 mg PO DAILY #30 tablet. 10/02/18 Allergies Allergy/AdvReac Type Severity Reaction Status Date / Time No Known Allergies Allergy Verified 06/29/22 15:51 Review of Systems ROS Statement: Those systems with pertinent positive or pertinent negative responses have been documented in the HPI. ROS Other: All systems not noted in ROS Statement are negative. Past Medical History Past Medical History: Coronary Artery Disease (CAD), Chest Pain / Angina, Hyperlipidemia, Hypertension, Myocardial Infarction ([place]) Additional Past Medical History / Comment(s): Recent hospitalization-had cardiac cath. & eval. for "open heart" per pt.,past kidney stones, umbilical hernia, ob esity Last Myocardial Infarction Date:: 09/30/2018 History of Any Multi-Drug Resistant Organisms: None Reported Past Surgical History: Heart Catheterization, Heart Catheterization With Stent Additional Past Surgical History / Comment(s): "3 heart caths, 4 stents," 1996, 2002 X2, 2012. PTCA W/ STENT 10/13/18. Past Anesthesia/Blood Transfusion Reactions: No Reported Reaction Additional Past Anesthesia/Blood Transfusion Reaction / Comment(s): has never had any blood transfusions Date of Last Stent Placement:: 10/13/18 Past Psychological History: No Psychological Hx Reported Smoking Status: Current every day smoker Past Alcohol Use History: None Reported Past Drug Use History: None Reported - Past Family History Father Family Medical History: Congestive Heart Failure (CHF), Coronary Artery Disease (CAD) Additional Family Medical History / Comment(s): Father at age 79. Mother Family Medical History: Cancer Additional Family Medical History / Comment(s): Mother at age 58, leukemia Brother(s) Family Medical History: Coronary Artery Disease (CAD) Additional Family Medical History / Comment(s): One of his 3 brothers at the age of 54 from an aneurysm. General Exam Limitations: no limitations General appearance: alert, in distress Head exam: Present: atraumatic, normocephalic Eye exam: Present: normal appearance, PERRL ENT exam: Present: normal exam Neck exam: Present: normal inspection. Absent: tenderness, meningismus Respiratory exam: Present: respiratory distress, wheezes, rhonchi, accessory muscle use, decreased breath sounds Cardiovascular Exam: Present: regular rate, normal rhythm GI/Abdominal exam: Present: soft. Absent: distended, guarding Extremities exam: Present: normal inspection, normal capillary refill. Absent: pedal edema Neurological exam: Present: alert, oriented X3, CN II-XII intact. Absent: motor sensory deficit Psychiatric exam: Present: normal affect, normal mood Skin exam: Present: warm, dry, intact. Absent: cyanosis, diaphoretic Course Vital Signs 06/29/22 06/29/22 06/29/22 14:11 15:33 15:41 Temperature 97.9 F Pulse Rate 100 100 96 Respiratory 26 H 22 Rate Blood Pressure 115/73 O2 Sat by Pulse 88 L 97 Oximetry EKG Findings - EKG Comments: EKG Findings:: EKG: Sinus rhythm rate of [address] segment elevation, UT interval 147, QRS duration 88, QTC 383 Medical Decision Making - Medical Decision Making 67 -year-old male presenting with 1 week of cough and dyspnea, cough is productive. Patient is hypoxic upon arrival in moderate respiratory distress. No formal diagnosis of COPD the patient is a current smoker. He has a reactive airway with wheezing and rhonchi bilaterally. Require supplemental oxygen in the emergency department. Chest x-ray concerning for pulmonary fibrosis versus subtle multifocal pneumonia. Patient started on antibiotics in the emergency department. He is given albuterol, Atrovent, steroids. Laboratory testing is negative for coronavirus or influenza. He will be admitted to Dr. Wright who is aware with pulmonology on consult. - Lab Data Result diagrams: 06/29/22 14:34 06/29/22 14:34 Lab Results 06/29/22 06/29/22 06/29/22 Range/Units 14:34 14:34 14:34 WBC 11.0 H (3.8-10.6) k/uL RBC 4.76 (4.30-5.90) m/uL Hgb 14.4 (13.0-17.5) gm/dL Hct 44.1 (39.0-53.0) % MCV 92.6 (80.0-100.0) fL MCH 30.3 (25.0-35.0) pg MCHC 32.7 (31.0-37.0) g/dL RDW 13.5 (11.5-15.5) % Plt Count 271 (150-450) k/uL MPV 7.6 Neutrophils % 79 % Lymphocytes % 12 % Monocytes % 5 % Eosinophils % 2 % Basophils % 1 % Neutrophils # 8.6 H (1.3-7.7) k/uL Lymphocytes # 1.3 (1.0-4.8) k/uL Monocytes # 0.6 (0-1.0) k/uL Eosinophils # 0.2 (0-0.7) k/uL Basophils # 0.1 (0-0.2) k/uL PT 10.6 (9.0-12.0) sec INR 1.0 (<1.2) APTT 24.7 (22.0-30.0) sec Sodium 137 (137-145) mmol/L Potassium 4.2 (3.5-5.1) mmol/L Chloride 99 (98-107) mmol/L Carbon Dioxide 25 (22-30) mmol/L Anion Gap 13 mmol/L BUN 21 H (9-20) mg/dL Creatinine 0.97 (0.66-1.25) mg/dL Est GFR (CKD-EPI)AfAm >90 (>60 ml/min/1.73 sqM) Est GFR (CKD-EPI)NonAf 82 (>60 ml/min/1.73 sqM) Glucose 150 H (74-99) mg/dL Plasma Lactic Acid Ivan (0.7-2.0) mmol/L Calcium 9.4 (8.4-10.2) mg/dL Total Bilirubin 0.9 (0.2-1.3) mg/dL AST 78 H (17-59) U/L ALT 96 H (4-49) U/L Alkaline Phosphatase 141 H (38-126) U/L Troponin I (0.000-0.034) ng/mL Total Protein 7.4 (6.3-8.2) g/dL Albumin 4.1 (3.5-5.0) g/dL Coronavirus (PCR) (Not Detectd) Influenza Type A RNA (Not Detectd) Influenza Type B (PCR) (Not Detectd) 06/29/22 06/29/22 06/29/22 Range/Units 14:34 14:34 14:34 WBC (3.8-10.6) k/uL RBC (4.30-5.90) m/uL Hgb (13.0-17.5) gm/dL Hct (39.0-53.0) % MCV (80.0-100.0) fL MCH (25.0-35.0) pg MCHC (31.0-37.0) g/dL RDW (11.5-15.5) % Plt Count (150-450) k/uL MPV Neutrophils % % Lymphocytes % % Monocytes % % Eosinophils % % Basophils % % Neutrophils # (1.3-7.7) k/uL Lymphocytes # (1.0-4.8) k/uL Monocytes # (0-1.0) k/uL Eosinophils # (0-0.7) k/uL Basophils # (0-0.2) k/uL PT (9.0-12.0) sec INR (<1.2) APTT (22.0-30.0) sec Sodium (137-145) mmol/L Potassium (3.5-5.1) mmol/L Chloride (98-107) mmol/L Carbon Dioxide (22-30) mmol/L Anion Gap mmol/L BUN (9-20) mg/dL Creatinine (0.66-1.25) mg/dL Est GFR (CKD-EPI)AfAm (>60 ml/min/1.73 sqM) Est GFR (CKD-EPI)NonAf (>60 ml/min/1.73 sqM) Glucose (74-99) mg/dL Plasma Lactic Acid Ivan 1.5 (0.7-2.0) mmol/L Calcium (8.4-10.2) mg/dL Total Bilirubin (0.2-1.3) mg/dL AST (17-59) U/L ALT (4-49) U/L Alkaline Phosphatase (38-126) U/L Troponin I <0.012 (0.000-0.034) ng/mL Total Protein (6.3-8.2) g/dL Albumin (3.5-5.0) g/dL Coronavirus (PCR) (Not Detectd) Influenza Type A RNA Not Detected (Not Detectd) Influenza Type B (PCR) Not Detected (Not Detectd) 06/29/22 Range/Units 14:34 WBC (3.8-10.6) k/uL RBC (4.30-5.90) m/uL Hgb (13.0-17.5) gm/dL Hct (39.0-53.0) % MCV (80.0-100.0) fL MCH (25.0-35.0) pg MCHC (31.0-37.0) g/dL RDW (11.5-15.5) % Plt Count (150-450) k/uL MPV Neutrophils % % Lymphocytes % % Monocytes % % Eosinophils % % Basophils % % Neutrophils # (1.3-7.7) k/uL Lymphocytes # (1.0-4.8) k/uL Monocytes # (0-1.0) k/uL Eosinophils # (0-0.7) k/uL Basophils # (0-0.2) k/uL PT (9.0-12.0) sec INR (<1.2) APTT (22.0-30.0) sec Sodium (137-145) mmol/L Potassium (3.5-5.1) mmol/L Chloride (98-107) mmol/L Carbon Dioxide (22-30) mmol/L Anion Gap mmol/L BUN (9-20) mg/dL Creatinine (0.66-1.25) mg/dL Est GFR (CKD-EPI)AfAm (>60 ml/min/1.73 sqM) Est GFR (CKD-EPI)NonAf (>60 ml/min/1.73 sqM) Glucose (74-99) mg/dL Plasma Lactic Acid Ivan (0.7-2.0) mmol/L Calcium (8.4-10.2) mg/dL Total Bilirubin (0.2-1.3) mg/dL AST (17-59) U/L ALT (4-49) U/L Alkaline Phosphatase (38-126) U/L Troponin I (0.000-0.034) ng/mL Total Protein (6.3-8.2) g/dL Albumin (3.5-5.0) g/dL Coronavirus (PCR) Not Detected (Not Detectd) Influenza Type A RNA (Not Detectd) Influenza Type B (PCR) (Not Detectd) Critical Care Time Critical Care Time: Yes Total Critical Care Time: 35 Disposition Clinical Impression: Acute exacerbation of chronic obstructive pulmonary disease, Community acquired pneumonia Disposition: ADMITTED IP TO THIS [facility] Condition: Stable Is patient prescribed a controlled substance at d/c from ED?: No Referrals: None,Stated [Primary Care Provider] - 1-2 days Time of Disposition: 15:59
[2022-06-29 15:15] LABS: Partial Thromboplastin Time 24.7 sec (22.0-30.0); Prothrombin Time 10.6 sec (9.0-12.0)
[2022-06-29 15:22] LABS: ALT 96 U/L (4-49); AST 78 U/L (17-59); African American GFR (CKD) >90 (>60 ml/min/1.73 sqM); Albumin 4.1 g/dL (3.5-5.0); Alkaline Phosphatase 141 U/L (38-126); Anion Gap 13 mmol/L; Blood Urea Nitrogen 21 mg/dL (9-20); Calcium 9.4 mg/dL (8.4-10.2); Carbon Dioxide 25 mmol/L (22-30); Chloride 99 mmol/L (98-107); Glucose 150 mg/dL (74-99); Non-African American GFR(CKD) 82 (>60 ml/min/1.73 sqM); Potassium 4.2 mmol/L (3.5-5.1); Sodium 137 mmol/L (137-145); Total Bilirubin 0.9 mg/dL (0.2-1.3); Total Protein 7.4 g/dL (6.3-8.2)
--- NOTE | 2022-06-29 15:50 | XR ---
EXAMINATION TYPE: XR chest 2V DATE OF EXAM: 06/29/2022 COMPARISON: 09/30/2018 HISTORY: Short of breath TECHNIQUE: FINDINGS: Heart is normal. Lungs are clear consolidation. There is coarsening of interstitial marking s. There are no hilar masses. No heart failure. There are chest leads. IMPRESSION: Mild pulmonary fibrotic changes. Normal heart. No significant change.
[2022-06-29] MEDS ORDERED: ACETAMINOPHEN TAB 325 MG TAB PO PRN (15:56)
[2022-06-29] MEDS ORDERED: NALOXONE 0.4 MG/ML 1 ML VIAL IVP PRN (15:56)
[2022-06-29] MEDS ORDERED: IPRATROPIUM-ALBUTEROL 3 ML NEB INHALATION PRN (15:56)
[2022-06-29] MEDS: IPRATROPIUM-ALBUTEROL 3 ML NEB INHALATION SCH ×2 (16:13→20:20)
[2022-06-29] MEDS: methylPREDNISolone SOD SUCCI 125 MG/2 ML VIAL IV SCH (17:54)
--- NOTE | 2022-06-29 21:28 | P.HPIM ---
History of Present Illness H&P Date: 06/29/22 Chief Complaint: RAMIN Patient is a 67-year-old male with a known history of coronary disease with stent placement x4, hypertension, hyperlipidemia, history of mild and currently everyday smoker presents to ER with complaints of difficulty breathing for the past 3 days. Patient felt like flulike symptoms initially and started having cough with yellowish sputum production. No complaints of fever or chills. No nausea vomiting abdominal pain or diarrhea. Denies any complaints of chest pain. No leg swelling. No palpitations. Denies any prior history of COPD. Patient is currently everyday smoker and started at age 15. Chest x-ray showed mild pulmonary fibrotic changes. Normal heart. No significant change. Laboratory data showed WBC 11.0, hemoglobin 14.4 and platelets 271 Sodium 137 potassium 4.2 chloride 99 bicarb is 25 BUN 21 creatinine 0.97 and blood sugar 1 AST 78 ALT 96 and alk phos 141 Troponin x1 negative and proBNP was 200 and Coronavirus PCR and influenza a and B-. Admission patient was tachypneic and pulse ox 88% on room air. Currently requiring oxygen at 4 L via nasal cannula. EKG showed sinus rhythm. Acute hypoxic respiratory failure secondary COPD exacerbation Acute COPD exacerbation Tracheobronchitis acute Elevated liver enzymes. Coronary artery with history of stent placement x4 After [place] Hypertension Hyperlipidemia Ongoing nicotine addiction DVT prophylaxis with heparin subcu Plan: Patient will be continued on IV Solu-Medrol 60 mg every 6 hourly and duo nebs and follow-up sputum culture. Will check D-dimer. Continue with antibiotics and home medications. Follow closely. Prognosis is guarded at this time. Smoking cessation has been counseled extensively. Past Medical History Past Medical History: Coronary Artery Disease (CAD), Chest Pain / Angina, Hyperlipidemia, Hypertension, Myocardial Infarction ([place]) Additional Past Medical History / Comment(s): Recent hospitalization-had cardiac cath. & eval. for "open heart" per pt.,past kidney stones, umbilical hernia, obesity Last Myocardial Infarction Date:: 09/30/2018 History of Any Multi-Drug Resistant Organisms: None Reported Past Surgical History: Heart Catheterization, Heart Catheterization With Stent Additional Past Surgical History / Comment(s): "3 heart caths, 4 stents," 1996, 2002 X2, 2012. PTCA W/ STENT 10/13/18. Past Anesthesia/Blood Transfusion Reactions: No Reported Reaction Additional Past Anesthesia/Blood Transfusion Reaction / Comment(s): has never had any blood transfusions Date of Last Stent Placement:: 10/13/18 Past Psychological History: No Psychological Hx Reported Smoking Status: Current every day smoker Past Alcohol Use History: None Reported Past Drug Use History: None Reported - Past Family History Father Family Medical History: Congestive Heart Failure (CHF), Coronary Artery Disease (CAD) Additional Family Medical History / Comment(s): Father at age 79. Mother Family Medical History: Cancer Additional Family Medical History / Comment(s): Mother at age 58, leukemia Brother(s) Family Medical History: Coronary Artery Disease (CAD) Additional Family Medical History / Comment(s): One of his 3 brothers at the age of 54 from an aneurysm. Medications and Allergies Home Medications Medication Instructions Recorded Confirmed Type Aspirin EC [Ecotrin Low Dose] 81 mg PO DAILY #30 tablet. 10/02/18 06/29/22 Rx Metoprolol Succinate (ER) [Toprol 75 mg PO DAILY 10/12/18 06/29/22 History XL] Atorvastatin [Lipitor] 80 mg PO HS 10/26/20 06/29/22 History Ezetimibe [Zetia] 10 mg PO DAILY 06/29/22 06/29/22 History Allergies Allergy/AdvReac Type Severity Reaction Status Date / Time No Known Allergies Allergy Verified 06/29/22 15:51 Physical Exam Vitals: Vital Signs Temp Pulse Resp BP Pulse Ox 06/29/22 20:45 98 F 06/29/22 20:35 88 06/29/22 20:20 104 H 06/29/22 17:52 86 18 143/77 93 L 06/29/22 16:08 109 H 06/29/22 16:05 101 H 18 136/93 95 06/29/22 15:41 96 22 97 06/29/22 15:33 100 06/29/22 14:11 97.9 F 100 26 H 115/73 88 L Intake and Output 06/29/22 06/29/22 06/29/22 06:59 14:59 22:59 Other: Weight 117.934 kg Results CBC & Chem 7: 06/29/22 14:34 06/29/22 14:34 Labs: Abnormal Lab Results - Last 24 Hours (Table) 06/29/22 06/29/22 Range/Units 14:34 14:34 WBC 11.0 H (3.8-10.6) k/uL Neutrophils # 8.6 H (1.3-7.7) k/uL BUN 21 H (9-20) mg/dL Glucose 150 H (74-99) mg/dL AST 78 H (17-59) U/L ALT 96 H (4-49) U/L Alkaline Phosphatase 141 H (38-126) U/L
[2022-06-29] MEDS ORDERED: ATORVASTATIN 80 MG TAB PO SCH (21:30)
[2022-06-30] MEDS: methylPREDNISolone SOD SUCCI 125 MG/2 ML VIAL IV SCH ×4 (01:05→17:39)
[2022-06-30] MEDS: HEPARIN SODIUM,PORCINE/PF 5,000 UNIT/0.5 ML SYRINGE SQ SCH ×3 (01:06→17:04)
[2022-06-30] MEDS: IPRATROPIUM-ALBUTEROL 3 ML NEB INHALATION SCH ×3 (08:00→16:46)
--- NOTE | 2022-06-30 08:02 | US ---
EXAMINATION TYPE: US abdomen limited DATE OF EXAM: 06/30/2022 COMPARISON: NONE CLINICAL HISTORY: elevated LFTs. TECHNIQUE: Multiple sonographic images of the right upper quadrant are obtained. FINDINGS: EXAM MEASUREMENTS: Liver Length: 9.8 cm Gallbladder Wall: 0.2 cm CBD: 0.4 cm Right Kidney: 9.4 x 6.5 x 5.9 cm [employer] NOTES: Pancreas: visualized portions wnl Liver: Increased echotexture without suspicious mass. Gallbladder: No stones seen Evidence for sonographic Fernandez's sign: No CBD: wnl Right Kidney: lobular contour. IMPRESSION: Hepatocellular disease commonly relating to hepatic steatosis.
[2022-06-30] MEDS ORDERED: EZETIMIBE 10 MG TAB PO SCH (09:00)
[2022-06-30] MEDS ORDERED: ASPIRIN 81 MG PO SCH (09:00)
[2022-06-30] MEDS ORDERED: AZITHROMYCIN 500 MG TAB PO SCH (09:00)
[2022-06-30] MEDS ORDERED: METOPROLOL SUCCINATE (ER) 25 MG TAB.ER.24H PO SCH (09:00)
[2022-06-30 09:27] LABS: Basophils # (A) 0.03 X 10*3/uL (0.00-0.10); Basophils % (A) 0.3 %; Eosinophils # (A) 0 X 10*3/uL (0.04-0.35); Eosinophils % (A) 0 %; HGB 13.4 g/dL (13.0-17.0); Lymphocytes # (A) 0.74 X 10*3/uL (0.90-5.00); Lymphocytes % (A) 6.5 %; MCH 30.1 pg (27.0-32.0); MCHC 32.7 g/dL (32.0-37.0); MCV 92.1 fL (80.0-97.0); Mean Platelet Volume 9.3 fL (9.5-12.2); Monocytes % (A) 1.8 %; NRBC Per 100 WBC 0 /100 WBCS (0.0-0.0); Neutrophils # (A) 10.25 X 10*3/uL (1.80-7.70); Neutrophils % (A) 90.4 %; Platelet Count 289 X 10*3/uL (140-440); RBC 4.45 X 10*6/uL (4.40-5.60); RDW 13.8 % (11.5-14.5); WBC 11.33 X 10*3/uL (4.50-10.00)
[2022-06-30 10:04] LABS: African American GFR (CKD) 103.5 (60.0-200.0); Albumin 3.7 g/dL (3.8-4.9); Albumin/Globulin Ratio 1.16 (1.60-3.17); Anion Gap 15.4 mmol/L (10.00-18.00); BUN/Creat Ratio 23.78 Ratio (12.00-20.00); Blood Urea Nitrogen 21.4 mg/dL (9.0-27.0); Calcium 9.2 mg/dL (8.7-10.3); Carbon Dioxide 21.6 mmol/L (20.0-27.5); Globulin 3.2 g/dL (1.6-3.3); Non-African American GFR(CKD) 89.3 (60.0-200.0); Potassium 4.8 mmol/L (3.5-5.5); Total Bilirubin 0.4 mg/dL (0.30-1.20); Total Protein 6.9 g/dL (6.2-8.2)
[2022-06-30 10:09] LABS: Hepatitis A Antibody IgM Nonreactive (Nonreactive); Hepatitis B Core IgM Nonreactive (Nonreactive); Hepatitis B Surface Antigen Nonreactive (Nonreactive); Hepatitis C IgG Antibody Nonreactive (Nonreactive)
[2022-06-30 11:02] LABS: Glucose,Whole Blood 239 mg/dL (70-110)
[2022-06-30 11:37] VITALS: BP 124/70; PULSE 84; RESP 22; TEMP 97
--- NOTE | 2022-06-30 13:41 | P.CNPUL ---
History of Present Illness Consult date: 06/30/22 Requesting physician: Mandie Wright Reason for consult: dyspnea, cough Chief complaint: Shortness of breath, cough, congestion History of present illness: This a pleasant 67-year-old male patient with a known history of hypertension, hyperlipidemia, coronary disease with previous stent placement, chronic and ongoing tobacco dependence of greater than 50 years. He presented here to the emergency room with complaints of increasing shortness of breath, cough and congestion. Chest x-ray revealed some mild pulmonary fibrotic changes. No acute pulmonary process. Normal heart size. Abdominal ultrasound revealed hepatocellular disease commonly relating to hepatic steatosis. White count 11.3. Hemoglobin 13.4. Sodium 137. Potassium 4.8. BUN 21. Creatinine 0.91. Glucose 194. AST 60. Creatinine 90. Pro-calcitonin 0.15. Troponin negative. ProBNP 200. Mazariegos virus by PCR not detected. Hepatitis screen negative. Influenza screen negative. He was initiated and DuoNeb inhalations, IV Solu- Medrol. Heparin for DVT prophylaxis. Antibiotics in the form of azithromycin. Review of Systems REVIEW OF SYSTEMS: CONSTITUTIONAL: Denies any recent significant weight loss or weight gain. EYES: Denies change in vision. EARS, NOSE, MOUTH, THROAT: Denies headaches, denies sore throat. CARDIOVASCULAR: Denies chest pain, palpitations or syncopal episodes. RESPIRATORY: Positive for shortness of breath, cough, congestion no hemoptysis. GASTROINTESTINAL: Denies change in appetite, denies abdominal pain GENITOURINARY: Denies hematuria, denies infections. MUSKULOSKELETAL: Denies pain, denies swelling. INTEGUMENTARY: Denies rash, denies eczema. NEUROLOGICAL: Denies recent memory loss, no recent seizure activity. PSYCHIATRIC: Denies anxiety, denies depression. HEMATOLOGIC/LYMPHATIC: Denies anemia, denies enlarged lymph nodes. Past Medical History Past Medical History: Coronary Artery Disease (CAD), Chest Pain / Angina, Hyperlipidemia, Hypertension, Myocardial Infarction ([place]) Additional Past Medical History / Comment(s): cardiac cath. & eval. for "open heart",past kidney stones, umbilical hernia, obesity Last Myocardial Infarction Date:: 09/30/2018 History of Any Multi-Drug Resistant Organisms: None Reported Past Surgical History: Heart Catheterization, Heart Catheterization With Stent Additional Past Surgical History / Comment(s): "3 heart caths, 4 stents," 1996, 2002, 2012. PTCA W/ STENT 10/13/18. Past Anesthesia/Blood Transfusion Reactions: No Reported Reaction Additional Past Anesthesia/Blood Transfusion Reaction / Comment(s): has never had any blood transfusions Date of Last Stent Placement:: 10/13/18 Past Psychological History: No Psychological Hx Reported Smoking Status: Current every day smoker Past Alcohol Use History: None Reported Additional Past Alcohol Use History / Comment(s): Started smoking at age 14 smokes <1 ppd, TRYING TO QUIT Past Drug Use History: None Reported - Past Family History Father Family Medical History: Congestive Heart Failure (CHF), Coronary Artery Disease (CAD) Additional Family Medical History / Comment(s): Father at age 79. Mother Family Medical History: Cancer Additional Family Medical History / Comment(s): Mother at age 58, leukemia Brother(s) Family Medical History: Coronary Artery Disease (CAD) Additional Family Medical History / Comment(s): One of his 3 brothers at the age of 54 from an aneurysm. Medications and Allergies Home Medications Medication Instructions Recorded Confirmed Type Aspirin EC [Ecotrin Low Dose] 81 mg PO DAILY #30 tablet. 10/02/18 06/29/22 Rx Metoprolol Succinate (ER) [Toprol 75 mg PO DAILY 10/12/18 06/29/22 History XL] Atorvastatin [Lipitor] 80 mg PO HS 10/26/20 06/29/22 History Ezetimibe [Zetia] 10 mg PO DAILY 06/29/22 06/29/22 History Allergies Allergy/AdvReac Type Severity Reaction Status Date / Time No Known Allergies Allergy Verified 06/29/22 15:51 Physical Exam Vitals: Vital Signs Temp Pulse Pulse Resp BP BP Pulse Ox 06/30/22 11:40 89 L 06/30/22 11:37 97 F L 84 22 124/70 90 L 06/30/22 11:34 88 06/30/22 11:24 87 06/30/22 08:54 97.7 F 70 24 142/73 06/30/22 08:20 90 06/30/22 08:07 90 96 06/30/22 02:00 61 16 91 L 06/30/22 01:28 71 18 133/82 93 L 06/30/22 01:10 86 20 115/59 94 L 06/29/22 20:45 98 F 06/29/22 20:35 88 06/29/22 20:20 104 H 06/29/22 17:52 86 18 143/77 93 L 06/29/22 16:08 109 H 06/29/22 16:05 101 H 18 136/93 95 06/29/22 15:41 96 22 97 06/29/22 15:33 100 06/29/22 14:11 97.9 F 100 26 H 115/73 88 L Intake and Output 06/29/22 06/30/22 06/30/22 22:59 06:59 14:59 Other: Voiding Method Toilet Weight 117.934 kg GENERAL EXAM: Alert, obese, pleasant 67-year-old male patient, on 2 L nasal cannula, comfortable in no apparent distress. HEAD: Normocephalic. EYES: Normal reaction of pupils, equal size. NOSE: Clear with pink turbinates. THROAT: No erythema or exudates. NECK: No masses, no JVD. CHEST: No chest wall deformity. LUNGS: Equal air entry with no crackles, wheeze, rhonchi or dullness. CVS: S1 and S2 normal with no audible murmur, regular rhythm. ABDOMEN: No hepatosplenomegaly, normal bowel sounds, no guarding or rigidity. SPINE: No scoliosis or deformity SKIN: No rashes CENTRAL NERVOUS SYSTEM: No focal deficits, tone is normal in all 4 extremities. EXTREMITIES: There is no peripheral edema. No clubbing, no cyanosis. Peripheral pulses are intact. Results - Laboratory Findings CBC and BMP: 06/30/22 01:29 06/30/22 01:29 PT/INR, D-dimer PT 10.6 sec (9.0-12.0) 06/29/22 14:34 INR 1.0 (<1.2) 06/29/22 14:34 D-Dimer 1.14 mg/L FEU (<0.60) H 06/30/22 01:29 Abnormal lab findings: Abnormal Labs 06/29/22 06/29/22 06/30/22 14:34 14:34 01:29 WBC 11.0 H MPV Immature Gran # Neutrophils # 8.6 H Lymphocytes # Eosinophils # D-Dimer BUN 21 H BUN/Creatinine Ratio Glucose 150 H POC Glucose (mg/dL) AST 78 H ALT 96 H Alkaline Phosphatase 141 H Albumin Albumin/Globulin Ratio Procalcitonin 0.15 H 06/30/22 06/30/22 06/30/22 01:29 01:29 01:29 WBC 11.33 H MPV 9.3 L Immature Gran # 0.11 H Neutrophils # 10.25 H Lymphocytes # 0.74 L Eosinophils # 0 L D-Dimer 1.14 H BUN BUN/Creatinine Ratio 23.78 H Glucose 194 H POC Glucose (mg/dL) AST 60 H ALT 90 H Alkaline Phosphatase Albumin 3.7 L Albumin/Globulin Ratio 1.16 L Procalcitonin 06/30/22 10:57 WBC MPV Immature Gran # Neutrophils # Lymphocytes # Eosinophils # D-Dimer BUN BUN/Creatinine Ratio Glucose POC Glucose (mg/dL) 239 H AST ALT Alkaline Phosphatase Albumin Albumin/Globulin Ratio Procalcitonin - Diagnostic Findings Chest x-ray: image reviewed Assessment and Plan Assessment: Acute hypoxemic respiratory failure secondary to an acute exacerbation of chronic obstructive pulmonary disease Chronic and ongoing tobacco dependence of greater than 50 years Coronary disease with previous stent placements Hypertension Hyperlipidemia Plan: The patient was seen and evaluated Chest x-ray, labs and medications reviewed The patient is quite adamant about going home Evaluate for possible home oxygen Recommend Symbicort, albuterol HFA, DuoNeb inhalations Complete a prednisone taper starting at 40 mg 4 days Would benefit from an appointment in the office for full pulmonary function testing Educated regarding the importance of complete smoking cessation We will continue to follow and make further recommendations based on his clinical status I have personally seen and examined the patient, performed the documentation and the assessment and plan as written. Number of minutes spent on the visit: 20.
[2022-06-30] MEDS ORDERED: SODIUM CHLORIDE 0.9% 1,000 ML IV SCH (15:45)
--- NOTE | 2022-06-30 17:43 | CT ---
EXAMINATION TYPE: CT chest angio for PE CT DLP: 682 mGycm, Automated exposure control for dose reduction was used. DATE OF EXAM: 06/30/2022 5:09 PM COMPARISON: Chest plain film 06/29/2022. CLINICAL INDICATION:Male, 67 years old with history of elevated D-dimer; Elevated D-dimer TECHNIQUE/CONTRAST: CTA scan of the thorax is performed with IV Contrast, patient injected with 100cc mL of Isovue 370, p ulmonary embolism protocol. MIP images are created and reviewed. FINDINGS: Pulmonary Artery: There is no evidence for a filling defect within the pulmonary vasculature to sugge st acute pulmonary embolism. The pulmonary artery is of normal size. Lungs/Pleura: No evidence of focal consolidation, pleural effusion or pneumothorax. Mild paraseptal e mphysema changes seen lung apices. There is suggestion of subtle centrilobular nodular changes most p roximal lung bases. Airway: Large airways are patent. Mild bronchial thickening. Heart: Heart is within normal limits for size. Moderate coronary artery atherosclerosis. Vasculature: No evidence of aortic aneurysm. Atherosclerosis of the arterial vasculature including th e coronary arteries. Mediastinum: No gross evidence of adenopathy. Musculoskeletal: No acute osseous abnormalities Soft Tissues: Mild bilateral gynecomastia.1 Lower neck: No significant findings. Upper Abdomen: No significant findings. IMPRESSION: 1. No evidence of pulmonary embolism. 2. Mild emphysema changes. 3. Mild bronchial wall thickening with some mild centrilobular nodular changes most pronounced in the lung bases. Correlate for bronchitis/bronchiolitis/small airways disease.
== END 2022-06-30 18:38 | disposition home or self-care (01) | DRG 190 ==
LOC: EC 13:57 → 5NMEDONC 15:57
PROVIDERS: ADMIT Internal Medicine; ATTEND Internal Medicine
DX: J44.0 Chronic obstructive pulmonary disease with (acute) lower respiratory infection (principal); J96.01 Acute respiratory failure with hypoxia; J44.1 Chronic obstructive pulmonary disease with (acute) exacerbation; J84.10 Pulmonary fibrosis, unspecified; I10 Essential (primary) hypertension; I25.10 Atherosclerotic heart disease of native coronary artery without angina pectoris; E66.9 Obesity, unspecified; R74.01 Elevation of levels of liver transaminase levels; E78.5 Hyperlipidemia, unspecified; F17.210 Nicotine dependence, cigarettes, uncomplicated; I25.2 Old myocardial infarction; K76.0 Fatty (change of) liver, not elsewhere classified; Z79.82 Long term (current) use of aspirin; Z79.899 Other long term (current) drug therapy; Z87.442 Personal history of urinary calculi; Z95.5 Presence of coronary angioplasty implant and graft; Z82.49 Family history of ischemic heart disease and other diseases of the circulatory system; Z20.822 Contact with and (suspected) exposure to COVID-19; Z87.19 Personal history of other diseases of the digestive system; Z68.38 Body mass index [BMI] 38.0-38.9, adult
CPT/HCPCS: 36415; 71046; 71275; 76705; 80053; 80074; 83605; 83880; 84145; 84484; 85025; 85379; 85610; 85730; 87040; 87502; 87635; 93005; 94640; 96365; 96367; 96368; 96372; 96375; 96376; 99291